=== PATIENT | female | born 1940 | race Caucasian/White ===

== ENCOUNTER 2022-07-22 09:33 | Outpatient (OUT) | payer MEDICARE, MEDICAID, SELFPAY ==
--- NOTE | 2022-07-22 10:03 | CT_ITS ---
The [address] [address] Patient Name: RAUL MCPHERSON MRN: [id number] date: 1940 Sex: F Assigned Patient Location: LAB Current Patient Location: MRI Accession/Order Number: [id number] Exam Date: 07/22/2022 10:15 Report Date: 07/22/2022 21:40 At the request of: JADON VALENTIN Procedure: CT angio head CT angio head, CT angio neck HISTORY: Syncope R55 TECHNIQUE: CTA head and neck. Post-processed images {Maximum intensity Projection (MIP), Volume-rendered (VR), or Surface shaded display images (SSD)} were created, reviewed and archived. All CT scans at this facility use dose modulation, iterative reconstruction, and/or weight based dosing when appropriate to reduce radiation dose to as low as reasonably achievable. Contrast: IV administration of 97 cc Omnipaque 350 COMPARISON: None. RESULT: NECK: Soft tissues: 2.0 cm left lower lobe low-attenuation nodule with scattered calcifications. Extensive postoperative changes involving the second paranasal sinuses including bilateral maxillary antrostomies bilateral uncinectomies, sinusotomies and ethmoidectomies. Diffuse mucoperiosteal reaction. Mild to moderate paranasal sinus mucosal thickening, most prominent within the right maxillary sinus. Spine: Alignment is normal. Mild degenerative changes are present. Lungs: The imaged lungs are clear. CT ARTERIOGRAM: EXTRACRANIAL CIRCULATION: Aortic arch and branch vessels: Conventional 3-vessel arch branch anatomy. No significant stenosis in the proximal brachiocephalic vessels. Carotid Stenosis: Right Common: No significant stenosis. Right Internal Carotid Plaque: Minimal plaque formation. Right Internal Carotid Stenosis (% by NASCET Criteria): 0% Left Common: No significant stenosis. Left Internal Carotid Plaque: Minimal plaque formation. Left Internal Carotid Stenosis (% by NASCET Criteria): 0% Cervical Vertebral Arteries: Patency: Bilateral Dominance: Codominant INTRACRANIAL CIRCULATION: Anterior circulation: Mild atherosclerotic calcification of the carotid siphons without hemodynamically significant stenosis. Otherwise, the distal ICAs, ACAs and MCAs are normal in caliber. A1 segments are codominant. Posterior circulation: Distal vertebral arteries, basilar trunk and paper coater are normal in caliber. Proximal SCAs, AICAs and PICAs are patent. No vessel cut off, filling defect, significant focal narrowing or evidence of aneurysm. Opacified dural venous sinuses and major deep and superficial draining veins are patent. IMPRESSION: Scattered atherosclerotic vascular, without vessel occlusion or high-grade stenosis in the head or neck. Electronically authenticated by: RAQUEL POLK Date: 07/22/2022 21:40
--- NOTE | 2022-07-22 10:03 | CT_ITS ---
The [address] [address] Patient Name: RAUL MCPHERSON MRN: [id number] date: 1940 Sex: F Assigned Patient Location: LAB Current Patient Location: MRI Accession/Order Number: [id number] Exam Date: 07/22/2022 10:15 Report Date: 07/22/2022 21:40 At the request of: JADON VALENTIN Procedure: CT angio neck CT angio head, CT angio neck HISTORY: Syncope R55 TECHNIQUE: CTA head and neck. Post-processed images {Maximum intensity Projection (MIP), Volume-rendered (VR), or Surface shaded display images (SSD)} were created, reviewed and archived. All CT scans at this facility use dose modulation, iterative reconstruction, and/or weight based dosing when appropriate to reduce radiation dose to as low as reasonably achievable. Contrast: IV administration of 97 cc Omnipaque 350 COMPARISON: None. RESULT: NECK: Soft tissues: 2.0 cm left lower lobe low-attenuation nodule with scattered calcifications. Extensive postoperative changes involving the second paranasal sinuses including bilateral maxillary antrostomies bilateral uncinectomies, sinusotomies and ethmoidectomies. Diffuse mucoperiosteal reaction. Mild to moderate paranasal sinus mucosal thickening, most prominent within the right maxillary sinus. Spine: Alignment is normal. Mild degenerative changes are present. Lungs: The imaged lungs are clear. CT ARTERIOGRAM: EXTRACRANIAL CIRCULATION: Aortic arch and branch vessels: Conventional 3-vessel arch branch anatomy. No significant stenosis in the proximal brachiocephalic vessels. Carotid Stenosis: Right Common: No significant stenosis. Right Internal Carotid Plaque: Minimal plaque formation. Right Internal Carotid Stenosis (% by NASCET Criteria): 0% Left Common: No significant stenosis. Left Internal Carotid Plaque: Minimal plaque formation. Left Internal Carotid Stenosis (% by NASCET Criteria): 0% Cervical Vertebral Arteries: Patency: Bilateral Dominance: Codominant INTRACRANIAL CIRCULATION: Anterior circulation: Mild atherosclerotic calcification of the carotid siphons without hemodynamically significant stenosis. Otherwise, the distal ICAs, ACAs and MCAs are normal in caliber. A1 segments are codominant. Posterior circulation: Distal vertebral arteries, basilar trunk and intercell connector placer are normal in caliber. Proximal SCAs, AICAs and PICAs are patent. No vessel cut off, filling defect, significant focal narrowing or evidence of aneurysm. Opacified dural venous sinuses and major deep and superficial draining veins are patent. IMPRESSION: Scattered atherosclerotic vascular, without vessel occlusion or high-grade stenosis in the head or neck. Electronically authenticated by: RAQUEL POLK Date: 07/22/2022 21:40
== END 2022-07-22 09:34 ==
LOC: LAB 09:38
PROVIDERS: PCP Internal Medicine; Visit Provider Nurse Practitioner Adult Health
DX: R55 Syncope and collapse (principal)
CPT/HCPCS: 36415; 70496; 70498; 82565; 84520; Q9967

== ENCOUNTER 2022-07-25 11:00 | Outpatient (OUT) | payer MEDICARE, MEDICAID, SELFPAY ==
[2022-07-22 10:01] LABS: Estimated GFR (African America >60 (>=60); Estimated GFR (Non-African Ame 51 (>=60)
--- NOTE | 2022-07-25 11:05 | MR_ITS ---
The [address] [address] Patient Name: RAUL MCPHERSON MRN: [id number] date: 1940 Sex: F Assigned Patient Location: MRI Current Patient Location: MRI Accession/Order Number: [id number] Exam Date: 07/25/2022 11:05 Report Date: 07/26/2022 07:08 At the request of: JADON VALENTIN Procedure: MR head/brain wo con EXAMINATION: MR head/brain wo con HISTORY: Mild cognitive impairment G31.84, Syncope R55 ; multiple syncopal episodes in COMPARISON: No relevant comparison available. TECHNIQUE: A variety of imaging planes and parameters were utilized for visualization of suspected pathology. Images were performed without contrast. FINDINGS: CEREBRUM: Numerous T2 hyperintensities within the periventricular and subcortical deep white matter and brainstem, nonspecific but favoring chronic small vessel ischemic changes. No edema, hemorrhage, mass, acute infarction, or inappropriate atrophy. CEREBELLUM: No edema, hemorrhage, mass, acute infarction, or inappropriate atrophy. BRAINSTEM: No edema, hemorrhage, mass, acute infarction, or inappropriate atrophy. CSF SPACES: Ventricles, cisterns, and sulci are appropriate for age. No hydrocephalus, subarachnoid hemorrhage, or mass. SKULL: No mass or other significant visible lesion. SINUSES: Bilateral maxillary antrectomies. Moderate mucosal thickening within right maxillary sinus. Mild thickening within the left maxillary, sphenoid, and remnant ethmoid air cells. No developed frontal sinuses. Retained secretions within left sphenoid sinus. ORBITS: Limited views are unremarkable. OTHER: Negative. IMPRESSION: 1. Age consistent atrophy and chronic small vessel ischemic changes. 2. No mass or suspicious findings. 3. Chronic sinusitis. Electronically authenticated by: IDANIA ESTRADA Date: 07/26/2022 07:08
== END 2022-07-25 11:01 ==
LOC: MRI 11:00
PROVIDERS: PCP Internal Medicine; Visit Provider Nurse Practitioner Adult Health
DX: R55 Syncope and collapse (principal); G31.84 Mild cognitive impairment of uncertain or unknown etiology; J32.9 Chronic sinusitis, unspecified; G31.9 Degenerative disease of nervous system, unspecified
CPT/HCPCS: 36415; 70551; 82565; 84520

== ENCOUNTER 2022-08-05 09:35 | Outpatient (OUT) | payer MEDICARE, SELFPAY ==
--- NOTE | 2022-08-05 11:40 | CT_ITS ---
The [address] [address] Patient Name: RAUL MCPHERSON MRN: [id number] date: 1940 Sex: F Assigned Patient Location: CT Current Patient Location: CT Accession/Order Number: [id number] Exam Date: 08/05/2022 11:20 Report Date: 08/05/2022 12:12 At the request of: NON-STAFF PHYSICIAN Procedure: CT abdomen pelvis w con EXAM: CT abdomen pelvis w con HISTORY: Abdominal Pain R10.9, Diarrhea R19.7 COMPARISON: None. TECHNIQUE: Axial CT images were obtained of the abdomen and pelvis with intravenous contrast. Multiplanar reconstructions were performed. ABDOMEN/PELVIS FINDINGS: Lower Chest: Unremarkable. Liver: A a few tiny hypodense lesions are present in the liver that are too small to characterize, but likely represent small cysts. Biliary/Gallbladder: Unremarkable. Pancreas: Unremarkable. Spleen: Unremarkable. Adrenal Glands: Unremarkable. Kidneys: Unremarkable. Gastrointestinal/Peritoneum: There is a moderate volume of stool in the transverse, descending and sigmoid colon. Extensive colonic diverticulosis is present at the sigmoid colon. The appendix is not discretely visualized. No free air or free fluid. Vascular: Mild scattered atherosclerotic calcifications are present. Lymph Nodes: No enlarged lymph nodes by CT size criteria. Pelvic Organs: Prior hysterectomy. Bladder: Unremarkable. Bones: No acute osseous abnormality. Moderate multilevel degenerative changes are present in the visualized spine. Soft tissues: Unremarkable. IMPRESSION: 1. No acute findings. 2. Moderate stool burden. 3. Extensive colonic diverticulosis. 4. Prior hysterectomy. Electronically authenticated by: BRYANT BRITO Date: 08/05/2022 12:12
== END 2022-08-05 09:36 | disposition home or self-care (01) ==
LOC: CT 09:36
PROVIDERS: PCP Internal Medicine
DX: R10.9 Unspecified abdominal pain (principal); R19.7 Diarrhea, unspecified; K57.30 Diverticulosis of large intestine without perforation or abscess without bleeding; Z90.710 Acquired absence of both cervix and uterus
CPT/HCPCS: 74177; Q9967

== ENCOUNTER 2024-10-15 11:24 | Outpatient (REF) | payer MEDICARE, SELFPAY ==
--- OUTSIDE RECORDS SUMMARY | 2024-10-09 09:00 | XMS_ITS | Encounter Summary ---
Author Organization [facility] Address [address] [place] [address] Care Team Providers Care Fulfillment Representative Name Role Phone Alberto Lugo Primary Care Provider [phone] Source Comments In the event this information is protected by the Federal Confidentiality of Alcohol and Drug AbusePatient Records regulations: The Federal rules restrict any use of the information to criminally investigate or prosecute any alcohol or drug abuse patient.[facility] Reason for Visit * Reason Comments New Patient Right sided head vikram n post fall from one year ago , hit head on concrete Occipital Pain * Consult, Test, Treat (Routine) - Closed Specialty Diagnoses / Procedures Referred By Pratibha bills Referred To Contact Neurology Diagnoses Occipital neuralgia of right side Procedures OFFICE/OUTPATIENT [facility] 60 MINUTES Cesar Vitale, DO [address] [place] [address] Phone: tel: Outpatient Referral [address] [place] [address] Referral ID Status Reason Start Date Expiration Date V isits Requested Visits Authorized [id number] Closed PCP Requested Referral 09/23/2024 2025 1 1 Encounter Details Date Type Department Care Team (Late st Contact Info) Description 10/09/2024 9:00 AM EDT Office Visit Neurology [address] [place] [address] Rochelle Jimé[place] [id number] [place] [address] Occipital neuralgia of right side Social History Tobacco Use Types Packs/Day Years Used Date Smoking Tobacco: Never Smokeless Tobacco: Never Tobacco Cessation:Counseling Given: Not Answered Alcohol Use Standard Drinks/Week Comments Never 0 (1 standard drink = 0.6 oz pur e alcohol) PHQ-2 Answer Date Recorded PHQ-2 score 2 09/17/2024 Area Deprivation Index Answer Date Ric rded National Score (1-100), lower number is lower ri sk 92 07/17/2024 State Score (1-10), lower number is lower risk 9 07/17/2024 Data from: https://www.neighborhoodatlas.medicine.[facility].edu/. Last address used for calculation [address] [place] [address] [employer] 07/17/2024 Comments Unknown Sex and Gender Information Value Date Recorded Sex Assigned at Not on file Legal Sex Female 2:46 PM EDT Gender Identity Not on file Sexual Orientation Not on file documented as of this encounter Last Filed Vital Signs Vital Sign Reading Time Taken Comments Blood Pressure 167/91 10/09/2024 8:52 AM EDT Pulse 65 10/09/2024 8:52 AM EDT Temperature - - Respiratory Rate - - Oxygen Saturation - - Inhaled Oxygen Concentration - - Weight 95.8 kg (211 lb 3.2 oz) 10/09/2024 8:52 A M EDT Height 167.6 cm (5' 6 ) 10/09/2024 8:52 AM EDT Body Mass Index 34.09 10/09/2024 8:52 AM EDT documented in this encounter Progress Notes * Rochelle Jiménez MD - 10/09/2024 9:24 AM EDT CONSULT-HEADACHE MEDICINE SERVICE DATE: 10/09/2024 Location: [facility] Participants: Patient, daughter and Provider Requesting Provider: Dr. Vitale Recommendations of care will be communicated by shared medical record. Subjective HPI: Audrey Watts is a 84 year old year old female who is here referred by Dr. Vitale for right occipital nerve block. She had 1 with a known [facility] provider about 6 months ago without benefit. Note from 08/06/2024 Dr. Vitale, reviewed. Past medical history: No DM A fibrillation Inermittent bronchitis Chronic maxillary sinusitis SKYE Outpatient Medications as of 10/09/[address] (CYMBALTA) 20 mg capsule Take 20 mg by mouth once daily. lisinopril (ZESTRIL) 20 mg tablet Take 20 mg by mouth every morning. gabapentin (NEURONTIN) 300 mg capsule BID x 2 weeks, then 1 TID baclofen 5 mg tablet Take 0.5-1 tablets by mouth two times a day as needed (tension/tightness). apixaban (ELIQUIS) 5 mg (74 tabs) Take 5 mg by mouth two times a day. amiodarone (PACERONE) 200 mg tablet Take 200 mg by mouth once daily. pravastatin (PRAVACHOL) 20 mg tablet Take 20 mg by mouth once daily. carvedilol (COREG) 3.125 mg tablet Take 3.125 mg by mouth two times a day. fluticasone (FLONASE) 50 mcg/actuation nasal spray Use 1 spray in each nostril once daily. tiotropium bromide (SPIRIVA RESPIMAT) 2.5 mcg/actuation inhaler Inhale 2 puffs as instructed two times a day. No current facility-administered medications on file as of 10/09/2024. Current medications review: Duloxetine for SKYE Neurontin for occipital neuralgia ALLERGIES Allergen Reactions Sulfa (Sulfonamide * Swelling PHYSICAL EXAM: Vitals: BP 167/91 Pulse 65 Ht 167.6 cm (5' 6 ) Wt 95.8 kg (211 lb 3.2 oz) BMI 34.09 kg/m?? Neck is supple. Skin over the neck is intact.Palpation of right sub-occipital area triggers pain. ASSESSMENT: -Right occipital neuralgia RECOMMENDATIONS: 1. Right occipital nerve block today. See attached procedure note. 2. Follow up as needed with me. Follow-up with Dr. Vitale. Rochelle Jiménez MD [facility] [place] documented in this encounter Procedure Notes * Rochelle Jiménez MD - 10/09/2024 9:43 AM EDT Occipital Nerve Block procedure note: Responsible practitioner performing the procedure(s)/treatment(s): Rochelle Jiménez Practitioner obtaining the consent: Rochelle Jiménez Procedure(s)/treatment(s): Occipital nerve block Consent Source: Patient Consent DEPARTMENT of NEUROLOGY UNIVERSAL PROTOCOL / SAFETY CHECKLIST Procedure to be Performed: Occipital nerve block Sign In: A Moment of CARE was completed. Personnel directly involved with the procedure wore the appropriate PPE (Personal Protective Equipment). Patient/Surrogate Stated/Verified: PATIENT VERIFIED(optional for EMERGENT procedures): Patient name, Date of , Relevant allergies and The intended procedure Time Out Communication: Intended patient and procedure match the source documents. Consent documented and matches the intended procedure. No relevant labs, photos, and/or imaging studies were applicable for review. No correct side/site applicable for marking and visibility. Medications required for procedure verified. No fire risk assessment and interventions applicable. No implant(s) inserted. Sign Out: SIGN OUT (optional for EMERGENT procedures): No specimen collected. No instruments, equipment or retained foreign bodies applicable. Post-procedure follow-up management communicated and Plan of Care Visit completed when applicable. Right Occipital Nerve Block: Dx: Occipital neuralgia Consent: In [facility] Informational guide about Occipital nerve block given - no allergies to steroid or anesthetic - no surgeries or hx of trauma in occipital area - no recent steroid injections for other indications Procedure: The patient was placed in a seated position. The site of pain and procedure were confirmed with the patient prior to starting the procedure. The patient's nuchal ridge of the occipital bone was identified and prepped with well with chlorhexidine x 3. A 31 Gauge 1/2 inch needle was advanced through the skin and subcutaneous tissues lateral to the occipital protuberance in the area of the right Greater Occipital Nerve.. Aspiration for blood and CSF was negative. FOR LATISHA: The needle wasagain repositioned 2 cm laterally. This area was injected with 1 cc of fluid after ensuring there was no obstruction or back flow of blood. A total of 6 cc of bupivacaine 0.25% and 6 mg of Betamethasone (Celestone)was injected. Needle was then removed and bleeding was nil. Rochelle Jiménez MD [facility] [place] documented in this encounter Plan of Treatment Not on file documented as of this encounter Visit Diagnoses Diagnosis Occipital neuralgia of right side documented in this encounter Administered Medications Inactive Administered Medications - up to 3 most recent administrations Medication Order MAR Action Action Date Dose Rate Site betamethasone acetate-betamethasone sodium phosphate 6 mg injection (CELESTONE) 6 mg, OTHER, ONCE, 1 dose, On Mon10/09/24 at 1030, Protect From Light. Given 10/09/2024 10:17 AM EDT 6 mg O[facility] r bupivacaine (PF) 0.25 % (2.5 mg/mL) 6 mg injection (SENSORCAINE MPF) 6 mg, peripheral nerve block, ONCE, 1 dose, On Mon10/09/24 at 1030 Given 10/09/2024 10:15 AM EDT 6 mg Othe r documented in this encounter Care Teams Fulfillment Representative Relationship Specialty Start Date End Date Alberto Lugo [facility] [address] [place] [address] PCP - General 09/29/17 documented as of this encounter
--- OUTSIDE RECORDS SUMMARY | 2024-10-15 10:30 | XMS_ITS | Encounter Summary ---
Author Organization [facility] Address [address] [place] [address] Care Team Providers Care Grader Operator Name Role Phone Sandy Toribio Unavailable Alberto Leonardo MD Primary Care Provider Reason for Visit * Reason Comments Sinusitis Need culture done no se Encounter Details Date Type Department Care Team (Late st Contact Info) Description 10/15/2024 10:30 AM EDT Office Visit [facility] [address] [facility] [address] [place] [id number] Jannette Arciniega MD [address] [facility] [address] [place], [place] [id number] Chronic maxillary sinusitis; Acute sinusitis, recurrence not specified, unspecified location Social History Tobacco Use Types Packs/Day Years Used Date Smoking Tobacco: Never Smokeless Tobacco: Never Alcohol Use Standard Drinks/Week Comments Never 0 (1 standard drink = 0.6 oz pure alcohol) caffeine intake: 2-3 cups per day of coffee Comments Unknown Sex and Gender Information Value Date Recorded Sex Assigned at Not on file Legal Sex Female 7:13 PM EDT Gender Identity Not on file Sexual Orientation Not on file documented as of this encounter Last Filed Vital Signs Vital Sign Reading Time Taken Comments Blood Pressure 132/80 10/15/2024 10:30 AM EDT Pulse 69 10/15/2024 10:30 AM EDT Temperature - - Respiratory Rate - - Oxygen Saturation - - Inhaled Oxygen Concentration - - Weight 95.3 kg (210 lb) 10/15/2024 10:30 AM EDT Height 167.6 cm (5' 6 ) 10/15/2024 10:30 AM EDT Body Mass Index 33.89 10/15/2024 10:30 AM EDT documented in this encounter Plan of Treatment Upcoming Encounters Date Type Department Care Team (Late st Contact Info) Description 11/12/2024 1:00 PM EDT Office Visit [facility] [address] [facility] [address] [place] [address] Jannette Arciniega MD [address] [facility] [address] [place] [address] Scheduled Orders Name Type Priority Associated Diagnoses Orde r Schedule Aerobic culture Microbiology Routine Chronic maxillary sinusitis Acute sinusitis, recurrence not specified, unspecified location Expected: 10/15/2024 (Approximate), Expires: 10/15/2025 documented as of this encounter Visit Diagnoses Diagnosis Chronic maxillary sinusitis Acute sinusitis, recurrence not specified, unspecified location documented in this encounter Care Teams Grader Operator Relationship Specialty Start Date End Date Alberto Leonardo MD [address] [place] [address], [address] [place] [address] PCP - General Family Medicine 04/19/24 Sandy Toribio PA Physician Hand Driller Neurology 03/05/24 documented as of this encounter
--- OUTSIDE RECORDS SUMMARY | 2024-10-15 11:27 | XMS_ITS | Encounter Summary ---
Author Organization [facility] Address [address] [place] [address] Phone Care Team Providers Care Paleontological Helper Name Role Phone Alberto Leonardo MD Primary Care Provider + Encounter Details Date Type Department Care Team (Late st Contact Info) Description 09/17/2019 Orders Only [facility] [address] [place] [address] Conversion, Onbase Social History Tobacco Use Types Packs/Day Years Used Date Smoking Tobacco: Never Assessed Comments Unknown Sex and Gender Information Value Date Recorded Sex Assigned at Not on file Legal Sex Female 7:40 PM EST Gender Identity Not on file Sexual Orientation Not on file documented as of this encounter Plan of Treatment Scheduled Orders Name Type Priority Associated Diagnoses Orde r Schedule OUTSIDE LAB SCAN Lab Ordered: 09/17/2019 documented as of this encounter Visit Diagnoses Not on filedocumented in this encounter Care Teams Paleontological Helper Relationship Specialty Start Date End Date Alberto Leonardo MD PCP - General 06/28/18 documented as of this encounter
--- OUTSIDE RECORDS SUMMARY | 2024-10-15 11:27 | XMS_ITS | Encounter Summary ---
Author Organization [employer] Sys [employer] Address [facility] [place]-[id number] [address] [place] [address] Care Team Providers Care Beaver Trapper Name Role Phone Alberto Leonardo MD Primary Care Provider [phone] Encounter Details Date Type Department Care Team (Late st Contact Info) Description 08/11/2020 Telephone [facility]/Pediatrics [address] [place] [address] 1 [place] [address] Alberto Leonardo MD [address] [place] [address], [address] [place] [address] Social History Tobacco Use Types Packs/Day Years Used Date Smoking Tobacco: Never Smokeless Tobacco: Never Alcohol Use Standard Drinks/Week Comments Never 0 (1 standard drink = 0.6 oz pur e alcohol) AUDIT-C Answer Date Recorded Q1: How often do you have a drink containing alc ohol? Never 04/13/2020 Q2: How many drinks containi ng alcohol do you have on a typical day when you are drinking? Not asked 04/13/2020 Q3: How often do you have six or more drinks on one occasion? Never 04/13/2020 PHQ-2 Answer Date Recorded Total Score 0 07/08/2020 Childcare Answer Date Recorded Childcare Unknown 07/18/2018 Employment Answer Date Recorded Employment Unknown 07/18/2018 Purpose - Life Answer Date Recorded Purpose and direction in life Unknown Comments Unknown Sex and Gender Information Value Date Recorded Sex Assigned at Female 09/19/2022 9:02 AM EDT Legal Sex Female 11:28 AM EDT Gender Identity Female 09/19/2022 9:02 AM EDT Sexual Orientation Straight 09/19/2022 9: 02 AM EDT COVID-19 Exposure Response Date Recorded In the last month, have you been in contact with someone who was confirmed or suspected to have Coronavirus / COVID-19? No / Unsure 08/11/2020 9:03 AM EDT documented as of this encounter Miscellaneous Notes * Telephone Encounter - Elizabethmaine Ortakell - 08/11/2020 9:05 AM EDT Transition of Care (*required) *Additional Questions/Concerns Requiring PCP Follow-Up: Wanting referred to Dr Anne (B[place]). This documentation is being used for Transition of Care purposes: Yes Goal: Patient will demonstrate a safe transition Diagnosis on Discharge: Viral gastroenteritis, Ischemic colitis *Name of Discharging Facility: [facility] Date of Facility Discharge: 08/07/20 Date of Interactive Contact and Name of Brake Lining Curer: Audrey 08/11/20 *Medication Review Completed: Yes Medication Reconciliation Questions/Concerns: Not at this time *Follow Up Appointments with Providers: Primary: Alberto Leonardo MD Specialty: Specialty: Specialty: Review of Pending Lab/Diagnostic Tests and Plan for Completion: yes Assessment and Support of Treatment Regimen Adherence and Medication Management: yes Education Provided by ACN to Support Self-Management, Independent Living and ADLs: yes Communication with Home Health Agencies and Other Services Utilized/Needed by the Patient: no documented in this encounter Plan of Treatment Upcoming Encounters Date Type Department Care Team (Late st Contact Info) Description 10/29/2024 11:30 AM EDT Office Visit [facility] [address] [place] [address] Rose Marie Goode MD [address] [place] [address] documented as of this encounter Visit Diagnoses Not on filedocumented in this encounter Additional Health Concerns Infection Onset Date Last Indicated Resolved Time COVID-19 Rule-Out 05/11/2021 05/11/202105/1105/11/2021 4:10 PM EDT COVID-19 Positive 05/11/2021 05/11/2021 06/01/2021 11:12 PM EDT COVID-19 Rule-Out 03/11/2023 03/11/2023 03/11/2023 3:46 PM EST COVID-19 Rule-Out 03/11/2023 03/11/2023 03/11/2023 5:20 PM EST Assessment Noted Time PHQ-9 Depression Total Score: 0 07/09/19 21 9:16 AM EDT documented as of this encounter Care Teams Beaver Trapper Relationship Specialty Start Date End Date Alberto Leonardo MD [address] [place] [address], [address] [place] [address] PCP - General Pediatrics 04/13/23 documented as of this encounter
--- OUTSIDE RECORDS SUMMARY | 2024-10-15 11:27 | XMS_ITS | Encounter Summary ---
Author Organization [employer] Sys [employer] Address [facility]-[id number] [address] [place] [address] Care Team Providers Care Manager Review Name Role Phone Alberto Leonardo MD Primary Care Provider [phone] Encounter Details Date Type Department Care Team (Late st Contact Info) Description 09/03/2021 Telephone [facility]/Pediatrics [address] [facility] 1 [place] [address] Tia Ryan RMA Social History Tobacco Use Types Packs/Day Years Used Date Smoking Tobacco: Never Smokeless Tobacco: Never Alcohol Use Standard Drinks/Week Comments Never 0 (1 standard drink = 0.6 oz pur e alcohol) Social Connection and Isolat ion Panel [NHANES] Answer Date Recorded In a typical week, how many times do you talk on the phone with family, friends, or neighbors? Three times a week 09/04/2021 How often do you get togethe r with friends or relatives? More than three times a week 09/04/2021 How often do you attend chur ch or bahai services? More than 4 times per year 09/04/2021 Do you belong to any clubs o r organizations such as jew groups, unions, fraternal or athletic groups, or school groups? Yes 09/04/2021 How often do you attend meet ings of the clubs or organizations you belong to? More than 4 times per year 09/04/2021 Are you , , di vorced, , never , or living with a partner? 09/04/2021 AUDIT-C Answer Date Recorded Q1: How often do you have a drink containing alcohol? Never 09/04/2021 Q2: How many drinks containi ng alcohol do you have on a typical day when you are drinking? Patient does not drink Q3: How often do you have si x or more drinks on one occasion? Never 09/04/2021 Overall Financial Resource Strain (CARDIA) Answe r Date Recorded How hard is it for you to pa y for the very basics like food, housing, medical care, and heating? Not hard at all 09/04/2021 PHQ-2 Answer Date Recorded Total Score 0 03/24/2021 [facility] of Occupat ional Health - Occupational Stress Questionnaire Answer Date Recorded Do you feel stress - tense, restless, nervous, or anxious, or unable to sleep at night because your mind is troubled all the time - these days? Not at all 09/04/2021 Exercise Vital Sign Answer Date Recorde d On average, how many days pe r week do you engage in moderate to strenuous exercise (like a brisk walk)? 2 days 09/04/2021 On average, how many minutes do you engage in exercise at this level? 20 min 09/04/2021 PRAPARE - Transportation Answer Date Re corded In the past 12 months, has l ack of transportation kept you from medical appointments or from getting medications? No 08/08 In the past 12 months, has l ack of transportation kept you from meetings, work, or from getting things needed for daily living? No 09/04/2021 Childcare Answer Date Recorded Do problems getting child ca re make it difficult for you to work or study? No 09/04/2021 Employment Answer Date Recorded Do you need help finding a [employer] career center and/or a training program? No 09/04/2021 Purpose - Life Answer Date Recorded I have a purpose and direction in my life. Stron gly Agree 09/04/2021 Comments No Sex and Gender Information Value Date Recorded [...] have Coronavirus / COVID-19? No / Unsure 09/04/2021 6:23 PM EDT documented as of this encounter Functional Status * Question Answer Date of Assessment Author Functional Status Moderate assistance 09/04/2021 7:16 PM EDT Elis Bourgeois RN * Audit-C Score Answer Date of Assessment Author 0 09/04/2021 7:31 PM EDT Vickie Bourgeois RN * Question Answer Date of Assessment Author Q1: How often do you have a drink containing alcohol? Never 09/04/2021 7:31 PM EDT Elis Bourgeois R N Q2: How many drinks containing alcohol do you have on a typical day when you are drinking? Patient does not drink 09/04/2021 7:31 PM EDT Elis Bourgeois RN Q3: How often do you have six or more drinks on one occasion? Never 09/04/2021 7:31 PM EDT Elis Bourgeois R N documented as of this encounter Miscellaneous Notes * Telephone Encounter - WILDA Kc - 09/03/2021 11:12 AM EDT Patient called stating her back pain has flared up. She said she's had back issues for years. She said the pain is in her lower back and radiates into her hip. Extra strength tylenol is not helping at all and she is unable to move around the house much. She wants to know if there is anyway you could send something into the pharmacy. Please advise. * Telephone Encounter - WILDA Kc - 09/03/2021 11:12 AM EDT FYI Patient called stating she is in too much pain and unable to get out of her chair. She is calling the squad and going to the ER. documented in this encounter Plan of Treatment Upcoming Encounters Date Type Department Care Team (Late st Contact Info) Description 10/29/2024 11:30 AM EDT Office Visit [facility] [address] [place] [address] Rose Marie Goode MD [address] [place] [address] documented as of this encounter Goals Goal Patient Goal Type Associated Problems Recent Progress Patient-Stated? Author SNF General Yes Flora Ornelas LSW Note: Evaluation of progress towards goal: DC to SNF or home with HHC (pending clinical course). Pt symptoms improved, goal is home; declining HHC. documented as of this encounter Visit Diagnoses Not on filedocumented in this encounter Additional Health Concerns Infection Onset Date Last Indicated Resolved Time COVID-19 Rule-Out 03/11/2023 03/11/2023 03/11/2023 3:46 PM EST COVID-19 Rule-Out 03/11/2023 03/11/2023 03/11/2023 5:20 PM EST Assessment Noted Time PHQ-9 Depression Total Score: 0 03/24/19 22 10:03 AM EST documented as of this encounter Care Teams Manager Review Relationship Specialty Start Date End Date Alberto Leonardo MD [address] [place] [address], [address] [place] [address] PCP - General Pediatrics 04/13/23 documented as of this encounter
--- OUTSIDE RECORDS SUMMARY | 2024-10-15 11:27 | XMS_ITS | Encounter Summary ---
Author Organization [employer] Sys [employer] Address [id number] [address] [place] [address] Care Team Providers Care Emr Specialist Name Role Phone Alberto Leonardo MD Primary Care Provider [phone] Reason for Visit * Reason Comments Med Refill Encounter Details Date Type Department Care Team (Late st Contact Info) Description 03/14/2023 Refill [facility]/P[facility] [address] [place] [address] 1 [place] [address] Alberto Leonardo MD [address] [place] [address], 1 [place] [address] Social History Tobacco Use Types Packs/Day Years Used Date Smoking Tobacco: Never Smokeless Tobacco: Never Alcohol Use Standard Drinks/Week Comments Not Currently 0 (1 standard drink = 0.6 oz [...] often do you attend chur ch or worship services? More than 4 times per year 09/04/2021 Do you belong to any clubs o r organizations such as jainism groups, unions, fraternal or athletic groups, or [...] 09/04/2021 PHQ-2 Answer Date Recorded Total Score 4 01/18/2023 [facility] of Occupat ional Health - Occupational Stress [...] Recorded Do you need help finding a [facility] and/or a training program? No 09/04/2021 Hunger Screening Answer Date Recorded Within the past 12 months we worried whether our food would run out before we got money to buy more. Never True 03/11/2023 Within the past 12 months th e food we bought just didn't last and we didn't have money to get more. Never True 03/11/2023 Purpose - Life Answer Date Recorded I have a purpose and direction in my life. Stron gly Agree 09/04/2021 Comments No Sex and Gender Information Value Date Recorded Sex Assigned at Female 09/19/2022 9:02 AM EDT Legal Sex Female 11:28 AM EDT Gender Identity Female 09/19/2022 9:02 AM EDT Sexual Orientation Straight 09/19/2022 9: 02 AM EDT documented as of this encounter Miscellaneous Notes * Telephone Encounter - Jami Griffin CMA - 03/14/2023 5:45 AM EST Patient no longer on this medication documented in this encounter Plan of Treatment Upcoming Encounters Date Type Department Care Team (Late st Contact Info) Description 10/29/2024 11:30 AM EDT Office Visit [facility] [address] [place] [address] Rose Marie Goode MD [address] [place] [address] documented as of this encounter Goals Goal Patient Goal Type Associated Problems Recent Progress Patient-Stated? Author SNF General Yes Flora Ornelas LSW Note: Evaluation of progress towards goal: DC to SNF or home with HHC (pending clinical course). Pt symptoms improved, goal is home; declining HHC. documented as of this encounter Visit Diagnoses Not on filedocumented in this encounter Additional Health Concerns Assessment Noted Time PHQ-9 Depression Total Score: 4 01/19/20 23 9:00 AM EST documented as of this encounter Care Teams Emr Specialist Relationship Specialty Start Date End Date Alberto Leonardo MD [address] [place] [address], [address] [place], [place] [id number] PCP - General Pediatrics 04/13/23 documented as of this encounter
--- OUTSIDE RECORDS SUMMARY | 2024-10-15 11:27 | XMS_ITS | Encounter Summary ---
Author Organization [employer] Address [facility]-[id number] [address] [place] [address] Care Team Providers Care Multifocal Lens Inspector Name Role Phone Alberto Leonardo MD Primary Care Provider [phone] Reason for Visit * Reason Comments Med Refill Encounter Details Date Type Department Care Team (Late st Contact Info) Description 01/26/2022 Refill [facility] [address] [place] [address] 1 [place] [phone] Alberto Leonardo MD [address] [place] [address], [address] [place] [address] Chronic sinusitis, unspecified location Social History Tobacco Use Types [...] often do you attend chur ch or christian services? More than 4 times per year 09/04/2021 Do you belong to any clubs o r organizations such as temple groups, unions, fraternal or athletic groups, or [...] 09/04/2021 PHQ-2 Answer Date Recorded Total Score 1 12/14/2021 [facility] of Occupat ional Health - Occupational Stress [...] Recorded Do you need help finding a [facility] career [facility] and/or a training program? No [...] Telephone Encounter - Jami Griffin CMA - 01/26/2022 7:39 AM EST Patient should call us if she needs a refill documented in this encounter Plan of Treatment Upcoming Encounters Date Type Department Care Team (Late st Contact Info) Description 10/29/2024 11:30 AM EDT Office Visit [facility] [address] [place] [address] Rose Marie Goode MD [address] [place], [place] [id number] documented as of this encounter Goals Goal Patient Goal Type Associated Problems Recent Progress Patient-Stated? Author SNF General Yes Flora Ornelas LSW Note: Evaluation of progress towards goal: DC to SNF or home with HHC (pending clinical course). Pt symptoms improved, goal is home; declining HHC. documented as of this encounter Visit Diagnoses Diagnosis Chronic sinusitis, unspecified location documented in this encounter Additional Health Concerns Infection Onset Date Last Indicated Resolved Time COVID-19 Rule-Out 03/11/2023 03/11/2023 03/11/2023 3:46 PM EST COVID-19 Rule-Out 03/11/2023 03/11/2023 03/11/2023 5:20 PM EST Assessment Noted Time PHQ-9 Depression Total Score: 1 12/15/19 22 1:00 PM EST documented as of this encounter Care Teams Multifocal Lens Inspector Relationship Specialty Start Date End Date Alberto Leonardo MD [address] [place] [address], [address] [place], [place] [id number] PCP - General Pediatrics 04/13/23 documented as of this encounter
--- OUTSIDE RECORDS SUMMARY | 2024-10-15 11:27 | XMS_ITS | Encounter Summary ---
Author Organization [employer] Address [id number] [address] [place] [address] Care Team Providers Care Mobile Sales Technician Name Role Phone Alberto Leonardo MD Primary Care Provider [phone] Reason for Visit * Reason Comments Med Refill Encounter Details Date Type Department Care Team (Late st Contact Info) Description 11/06/2023 Refill [facility]/P[facility] [address] [place] [address] 1 [place] [address] Alberto Leonardo MD [address] [place] [address], 1 [place] [address] Social History Tobacco Use Types [...] often do you attend chur ch or orthodox services? More than 4 times per year 09/04/2021 Do you belong to any clubs o r organizations such as synagogue groups, unions, fraternal or athletic groups, or [...] Answer Date Recorded Total Score 4 01/18/2023 [facility] of Occupat ional Health - Occupational [...] Recorded Do you need help finding a [facility] and/or a training program? No 09/04/2021 Hunger Screening Answer Date Recorded Within the past 12 months we worried whether our food would run out before we got money to buy more. Never True 10/07/2023 Within the past 12 months th e food we bought just didn't last and we didn't have money to get more. Never True 10/07/2023 Purpose - Life Answer Date Recorded I [...] Telephone Encounter - Jami Griffin CMA - 11/06/2023 4:17 PM EDT duplicate documented in this encounter Plan of Treatment Upcoming Encounters Date Type Department Care Team (Late st Contact Info) Description 10/29/2024 11:30 AM EDT Office Visit [facility] [address] [place] [phone] Rose Marie Goode MD [address] [place] [address] documented as of this encounter Goals Goal [...] documented as of this encounter Care Teams Mobile Sales Technician Relationship Specialty Start Date End Date Alberto Leonardo MD [address] [place] [address], [address] [place], [place] [id number] PCP - General Pediatrics 04/13/23 documented as of this encounter
--- OUTSIDE RECORDS SUMMARY | 2024-10-15 11:27 | XMS_ITS | Encounter Summary ---
Author Organization [employer] s tem Address [facility] [place]-[id number] [facility] [place] [address] Care Team Providers Care Narrow Gauge Operator Name Role Phone Alberto Leonardo MD Primary Care Provider Encounter Details Date Type Department Care Team (Late st Contact Info) Description 09/20/2021 Telephone [facility] [address] [place] [address] 1 [place] [address] Alberto Leonardo MD [address] [place] [address], [address] [place] [address] Social History Tobacco Use Types [...] often do you attend chur ch or mandaeism services? More than 4 times per year 09/04/2021 Do you belong to any clubs o r organizations such as sabianism groups, unions, fraternal or athletic groups, or [...] Answer Date Recorded Total Score 0 03/24/2021 [facility] of Occupat ional Health - Occupational Stress [...] Recorded Do you need help finding a l al career center and/or a training program? [...] have Coronavirus / COVID-19? No / Unsure 09/18/2021 10:20 PM EDT documented as of this encounter Miscellaneous Notes * Telephone Encounter - Maren Kohler - 09/20/2021 10:30 AM EDT Audrey needs a STEPHANIE done, she is being discharged today 09/20 from [facility]. Appointment is scheduled for 09/27. documented in this encounter Plan of Treatment Upcoming Encounters Date Type Department Care Team (Late st Contact Info) Description 10/29/2024 11:30 AM EDT Office Visit [facility] [address] [place] [address] Rose Marie Goode MD [address] [place] [address] documented as of this encounter Goals Goal [...] Time PHQ-9 Depression Total Score: 0 03/24/19 10:03 AM EST documented as of this encounter Care Teams Narrow Gauge Operator Relationship Specialty Start Date End Date Alberto Leonardo MD [address] [place] [address], [address] [place] [address] PCP - General Pediatrics 04/13/23 documented as of this encounter
--- OUTSIDE RECORDS SUMMARY | 2024-10-15 11:27 | XMS_ITS | Encounter Summary ---
Author Organization [facility] Address [address] [place] [address] Phone Care Team Providers Care Tent Assembler Name Role Phone Alberto Leonardo MD Primary Care Provider + Encounter Details Date Type Department Care Team (Late st Contact Info) Description 09/10/2020 Orders Only [facility] [address] [place] [address] Conversion, Onbase Social History Tobacco Use Types [...] Type Priority Associated Diagnoses Orde r Schedule SLEEP STUDY ORDER - ONBASE SCAN Sleep Center Ordered: 021 documented as of this encounter Visit Diagnoses Not on filedocumented in this encounter Care Teams Tent Assembler Relationship Specialty Start Date End Date Alberto Leonardo MD PCP - General 06/28/18 documented as of this encounter
--- OUTSIDE RECORDS SUMMARY | 2024-10-15 11:27 | XMS_ITS | Encounter Summary ---
Author Organization [facility] Sys tem Address [facility]-[id number] [address] [place] [address] Care Team Providers Care Human Service Specialist Name Role Phone Alberto Leonardo MD Primary Care Provider [phone] Encounter Details Date Type Department Care Team (Late st Contact Info) Description 04/01/2022 Orders Only [facility] [address] [place] [address] External, Scanning Provider Social History Tobacco Use Types Packs/Day Years [...] often do you attend chur ch or synagogue services? More than 4 times per year 09/04/2021 Do you belong to any clubs o r organizations such as shinto groups, unions, fraternal or athletic groups, or [...] Answer Date Recorded Total Score 1 12/14/2021 [facility] of Occupat ional Health - Occupational Stress [...] Recorded Do you need help finding a [employer] [facility] career center and/or a training program? No 09/04/2021 Hunger Screening Answer Date Recorded Within the past 12 months we worried whether our food would run out before we got money to buy more. Never True 03/23/2022 Within the past 12 months th e food we bought just didn't last and we didn't have money to get more. Never True 03/23/2022 Purpose - Life Answer Date Recorded I [...] have Coronavirus / COVID-19? No / Unsure 03/22/2022 2:54 PM EST documented as of this encounter Plan of Treatment Upcoming Encounters Date Type Department Care Team (Late st Contact Info) Description 10/29/2024 11:30 AM EDT Office Visit [facility] [address] [place] [address] Rose Marie Goode MD [address] [place] [address] documented as of this encounter Goals Goal Patient Goal Type Associated Problems Recent Progress Patient-Stated? Author SNF General Yes Flora Ornelas LSW Note: Evaluation of progress towards goal: DC to SNF or home with HHC (pending clinical course). Pt symptoms improved, goal is home; declining HHC. documented as of this encounter Procedures Procedure Name Priority Date/Time Associated Diagnosis Comments US ABDOMEN COMPLETE Routine 03/31/2022 documented in this encounter Results * Ultrasound abdomen complete (03/31/2022) Anatomical Region Laterality Modality Body, Abdomen Ultrasound 03/31/2022 us Scanning Provider External IMG US ORDERABLES Fin al Result documented in this encounter Visit Diagnoses Not on filedocumented in this encounter Additional Health Concerns Infection Onset Date Last Indicated Resolved Time COVID-19 Rule-Out 03/11/2023 03/11/2023 03/11/2023 3:46 PM EST COVID-19 Rule-Out 03/11/2023 03/11/2023 03/11/2023 5:20 PM EST Assessment Noted Time PHQ-9 Depression Total Score: 1 12/15/19 22 1:00 PM EST documented as of this encounter Care Teams Human Service Specialist Relationship Specialty Start Date End Date Alberto Leonardo MD [address] [place] [address], [address] [place] [address] PCP - General Pediatrics 04/13/23 documented as of this encounter
--- OUTSIDE RECORDS SUMMARY | 2024-10-15 11:27 | XMS_ITS | Encounter Summary ---
Author Organization [employer] Sys [employer] Address [facility] [place]-[id number] [address] [place] [address] Care Team Providers Care Resident Care Assistant Name Role Phone Alberto Leonardo MD Primary Care Provider [phone] Reason for Visit * Reason Comments Med Refill Encounter Details Date Type Department Care Team (Late st Contact Info) Description 10/09/2023 Refill [facility] Internal Medicine/Pediatrics [address] [place] [address] 1 [place] [address] Alberto Leonardo MD [address] [place] [address], 1 [place] [address] Bronchitis Social History Tobacco Use Types Packs/Day Years [...] often do you attend chur ch or pentecostal services? More than 4 times per year 09/04/2021 Do you belong to any clubs o r organizations such as restorationism groups, unions, fraternal or athletic groups, or [...] Answer Date Recorded Total Score 4 01/18/2023 [facility] of Occupat ional Health - Occupational Stress [...] Recorded Do you need help finding a vencor hospitalal career center and/or a training program? [...] Telephone Encounter - Jami Griffin CMA - 10/09/2023 2:17 PM EDT duplicate documented in this encounter Plan of Treatment Upcoming Encounters Date Type Department Care Team (Late st Contact Info) Description 10/29/2024 11:30 AM EDT Office Visit [facility] Cardiology [address] [place] [address] Rose Marie Goode MD [address] [place] [address] documented as of this encounter Goals Goal Patient Goal Type Associated Problems Recent Progress Patient-Stated? Author SNF General Yes Flora Ornelas LSW Note: Evaluation of progress towards goal: DC to SNF or home with HHC (pending clinical course). Pt symptoms improved, goal is home; declining HHC. documented as of this encounter Visit Diagnoses Diagnosis Bronchitis Bronchitis, not specified as acute or chronic documented in this encounter Additional Health Concerns Assessment Noted Time PHQ-9 Depression Total Score: 4 01/19/20 23 9:00 AM EST documented as of this encounter Care Teams Resident Care Assistant Relationship Specialty Start Date End Date Alberto Leonardo MD [address] [place] [address], [address] [place], [place] [id number] PCP - General Pediatrics 04/13/23 documented as of this encounter
--- OUTSIDE RECORDS SUMMARY | 2024-10-15 11:27 | XMS_ITS | Encounter Summary ---
Author Organization [facility] Address [address] [place] [address] Phone Care Team Providers Care Mortgage Lender Name Role Phone Alberto Leonardo MD Primary Care Provider + Encounter Details Date Type Department Care Team (Late st Contact Info) Description 07/25/2019 Orders Only [email or web address] LEGACY [address] [place] [address] Conversion, Onbase Social History Tobacco Use Types [...] r Schedule OUTSIDE LAB SCAN Lab Ordered: 07/25/2019 documented as of this encounter Visit Diagnoses Not on filedocumented in this encounter Care Teams Mortgage Lender Relationship Specialty Start Date End Date Alberto Leonardo MD PCP - General 06/28/18 documented as of this encounter
--- OUTSIDE RECORDS SUMMARY | 2024-10-15 11:27 | XMS_ITS | Encounter Summary ---
Author Organization [employer] Address [facility] [place]-[id number] [facility] [place] [address] Care Team Providers Care Senior Marketing Analyst Name Role Phone Alberto Leonardo MD Primary Care Provider [phone] Encounter Details Date Type Department Care Team (Late st Contact Info) Description 03/27/2023 Telephone [facility] Internal Medicine/Pediatrics [address] [place] [address] 1 [place] [address] Alberto Leonardo MD [address] [place] [address], [address] [place] [address] Social History Tobacco Use Types [...] often do you attend chur ch or jew services? More than 4 times per year [...] Answer Date Recorded Total Score 4 01/18/2023 [facility] Questionnaire Answer Date Recorded [...] Recorded Do you need help finding a [facility] career center and/or a training program? [...] Miscellaneous Notes * Telephone Encounter - Maren Burgessl - 03/27/2023 1:17 PM EST FYI: Keshia said that she has tested positive to COVID 19, but she thinks she is at the end of it. She is thinking that her raspy cough was probably COVID and she didn't realize it. She just wanted to let you know. documented in this encounter Plan of Treatment Upcoming Encounters Date Type Department Care Team (Late st Contact Info) Description 10/29/2024 11:30 AM EDT Office Visit [facility] [address] [place] [id number] Rose Marie Goode MD [address] [place] [address] documented as of this encounter Goals Goal [...] documented as of this encounter Care Teams Senior Marketing Analyst Relationship Specialty Start Date End Date Alberto Leonardo MD [address] [place] [address], [address] [place] [address] PCP - General Pediatrics 04/13/23 documented as of this encounter
--- OUTSIDE RECORDS SUMMARY | 2024-10-15 11:27 | XMS_ITS | Encounter Summary ---
Author Organization [employer] [facility] [employer] Address [facility] [place]-[id number] [address] [place] [address] Care Team Providers Care Electrician Apprentice Powerhouse Name Role Phone Alberto Leonardo MD Primary Care Provider [phone] Reason for Visit * Reason Comments Med Refill Encounter Details Date Type Department Care Team (Late st Contact Info) Description 12/28/2020 Refill [facility] Ear, Nose and Throat [address] [place] [phone] Marian Ayon, PA-C [address] [facility] [address] [place], [place] [id number] Chronic sinusitis, unspecified location Social History Tobacco [...] PHQ-2 Answer Date Recorded Total Score 0 12/16/2020 Childcare Answer Date Recorded Childcare Unknown 07/18/2018 [...] have Coronavirus / COVID-19? No / Unsure 12/30/2020 12:41 PM EST documented as of this encounter Plan of Treatment Upcoming Encounters Date Type Department Care Team (Late st Contact Info) Description 10/29/2024 11:30 AM EDT Office Visit [facility] [address] [place] [address] Rose Marie Goode MD [address] [place] [address] documented as of this encounter Visit Diagnoses Diagnosis Chronic sinusitis, unspecified location documented in this encounter Additional Health Concerns Infection Onset Date Last Indicated Resolved Time COVID-19 Rule-Out 05/11/2021 05/11/2021 05/11/2021 4:10 PM EDT COVID-19 Positive 05/11/2021 05/11/2021 06/01/2021 11:12 PM EDT COVID-19 Rule-Out 03/11/2023 03/11/2023 03/11/2023 3:46 PM EST COVID-19 Rule-Out 03/11/2023 03/11/2023 03/11/2023 5:20 PM EST Assessment Noted Time PHQ-9 Depression Total Score: 0 12/17/19 9:57 AM EST documented as of this encounter Care Teams Electrician Apprentice Powerhouse Relationship Specialty Start Date End Date Alberto Leonardo MD [address] [place] [address], [address] [place], [place] [id number] PCP - General Pediatrics 04/13/23 documented as of this encounter
--- OUTSIDE RECORDS SUMMARY | 2024-10-15 11:27 | XMS_ITS | Encounter Summary ---
Author Organization [facility] Address [facility]-[id number] [address] [place] [address] Care Team Providers Care Mcat Instructor Name Role Phone Alberto Leonardo MD Primary Care Provider [phone] Encounter Details Date Type Department Care Team (Latest Contact Info) Description 10/09/2024 Results Follow-Up [facility] Cardiology [address] [place] [address] Marilyn Fleming RN Comprehensive metabolic panel, Thyroid profile includes TSH FT4 Social History Tobacco Use Types Packs/Day Years [...] often do you attend chur ch or orthodoxy services? More than 4 times per year 09/04/2021 Do you belong to any clubs o r organizations such as latter day groups, unions, fraternal or athletic groups, or [...] 09/04/2021 PHQ-2 Answer Date Recorded Total Score 6 01/25/2024 [facility] - Occupational Stress Questionnaire Answer Date Recorded [...] got money to buy more. Never True 08/27/2024 Within the past 12 months th e food we bought just didn't last and we didn't have money to get more. Never True 08/27/2024 Purpose - Life Answer Date Recorded I have a purpose and direction in my life. Stron gly Agree 09/04/2021 Comments No Sex and Gender Information Value Date Recorded Sex Assigned at Female 09/19/2022 9:02 AM EDT Legal Sex Female 11:28 AM EDT Gender Identity Female 09/19/2022 9:02 AM EDT Sexual Orientation Straight 09/19/2022 9: 02 AM EDT documented as of this encounter Plan of Treatment Upcoming Encounters Date Type Department Care Team (Late st Contact Info) Description 10/29/2024 11:30 AM EDT Office Visit [facility] [address] [place] [address] Rose Marie Goode MD [address] [place] [address] documented as of this encounter Goals Goal [...] Assessment Noted Time PHQ-9 Depression Total Score: 6 01/25/20 24 1:00 PM EST documented as of this encounter Care Teams Mcat Instructor Relationship Specialty Start Date End Date Alberto Leonardo MD [address] [place] [address], [address] [place], [place] [id number] PCP - General Pediatrics 04/13/23 documented as of this encounter
--- OUTSIDE RECORDS SUMMARY | 2024-10-15 11:27 | XMS_ITS | Encounter Summary ---
Author Organization [facility] Address [facility]-[id number] [address] [place] [address] Care Team Providers Care Operations Controller Name Role Phone Alberto Leonardo MD Primary Care Provider [phone] Reason for Visit * Reason Onset Date Comments heach/neck pain 09/27/2023 Encounter Details Date Type Department Care Team (Late st Contact Info) Description 09/27/2023 Telephone [facility] Internal Medicine/Pediatrics [address] [facility] 1 [place] [address] Jami Griffin CMA heach/neck pain Social History Tobacco Use Types Packs/Day Years [...] often do you attend chur ch or episcopal services? More than 4 times per year 09/04/2021 Do you belong to any clubs o r organizations such as muslim groups, unions, fraternal or athletic groups, or [...] Answer Date Recorded Total Score 4 01/18/2023 [facility] of Occupat ional Health - Occupational Stress [...] got money to buy more. Never True 04/13/2023 Within the past 12 months th e food we bought just didn't last and we didn't have money to get more. Never True 04/13/2023 Purpose - Life Answer Date Recorded I have a purpose and direction in my life. Stron ck Agree 09/04/2021 Comments No Sex and Gender Information Value Date Recorded Sex Assigned at Female 09/19/2022 9:02 AM EDT Legal Sex Female 11:28 AM EDT Gender Identity Female 09/19/2022 9:02 AM EDT Sexual Orientation Straight 09/19/2022 9: 02 AM EDT documented as of this encounter Miscellaneous Notes * Telephone Encounter - Jami Griffin CMA - 09/27/2023 4:17 PM EDT Patient called regarding fall she had last month. She went to ER and had Brain and Cervical spine CT done which were normal. She is continuing to have pain in her neck which shoots into her head . She has an appointment but she said she would like another CT done because she feels they may have missed something. * Telephone Encounter - Alberto Leonardo MD - 09/27/2023 4:17 PM EDT I'll check her at her appointment, but unlikely anything was missed on initial imaging. documented in this encounter Plan of Treatment Upcoming Encounters Date Type Department Care Team (Late st Contact Info) Description 10/29/2024 11:30 AM EDT Office Visit [facility] [address] [place] [address] Rose Marie Goode MD [address] [place] [address] documented as of this encounter Goals Goal [...] documented as of this encounter Care Teams Operations Controller Relationship Specialty Start Date End Date Alberto Leonardo MD [address] [place] [address], [address] [place] [address] PCP - General Pediatrics 04/13/23 documented as of this encounter
--- OUTSIDE RECORDS SUMMARY | 2024-10-15 11:27 | XMS_ITS | Encounter Summary ---
Author Organization [facility] Address [id number] [address] [place] [address] Care Team Providers Care Parboiler Name Role Phone Alberto Leonardo MD Primary Care Provider [phone] Encounter Details Date Type Department Care Team (Late st Contact Info) Description 06/06/2022 Orders Only [facility] Internal Medicine/Pediatrics [address] [place] [phone] Tia Ryan RMA Chronic sinusitis, unspecified location Social History Tobacco [...] often do you attend chur ch or shinto services? More than 4 times per year 09/04/2021 Do you belong to any clubs o r organizations such as judaism groups, unions, fraternal or athletic groups, or [...] Answer Date Recorded Total Score 1 12/14/2021 [facility] of Occupat ional Health - Occupational Stress [...] Recorded Do you need help finding a [employer] [facility] career center and/or a training program? [...] Cardiology [address] [place] [address] Rose Marie Goode MD [address] [place] [address] documented as of this encounter Goals Goal Patient Goal Type Associated Problems Recent Progress Patient-Stated? Author SNF General Yes Flora Ornelas LSW Note: Evaluation of progress towards goal: DC to SNF or home with HHC (pending clinical course). Pt symptoms improved, goal is home; declining HHC. documented as of this encounter Procedures Procedure Name Priority Date/Time Associated Diagnosis Comments AMB REFERRAL TO ENT Routine 06/06/2022 Chronic sinusitis, unspecified location documented in this encounter Results * Ambulatory referral to ENT (06/06/2022) 06/06/2022 us Alberto Leonardo MD OUTPATIENT REFERRAL ORDERABLE S Final Result MANUALLY TRANSCRIBED RESULTS documented in this encounter Visit Diagnoses Diagnosis Chronic sinusitis, unspecified location documented in this encounter Additional Health Concerns Infection Onset Date Last Indicated Resolved Time COVID-19 Rule-Out 03/11/2023 03/11/2023 03/11/2023 3:46 PM EST COVID-19 Rule-Out 03/11/2023 03/11/2023 03/11/2023 5:20 PM EST Assessment Noted Time PHQ-9 Depression Total Score: 1 12/15/19 22 1:00 PM EST documented as of this encounter Care Teams Parboiler Relationship Specialty Start Date End Date Alberto Leonardo MD [address] [place] [address], [address] [place] [address] PCP - General Pediatrics 04/13/23 documented as of this encounter
--- OUTSIDE RECORDS SUMMARY | 2024-10-15 11:27 | XMS_ITS | Encounter Summary ---
Author Organization [employer] Address [id number] [address] [place] [address] Care Team Providers Care Machine Tack Puller Name Role Phone Alberto Leonardo MD Primary Care Provider [phone] Reason for Visit * Reason Onset Date Comments Med Refill 10/11/2024 Encounter Details Date Type Department Care Team (Late st Contact Info) Description 10/11/2024 Refill [facility] Cardiology [address] [place] [address] Olga Horowitz, TETO Med Refill Social History Tobacco Use Types Packs/Day Years [...] often do you attend chur ch or tenriism services? More than 4 times per year 09/04/2021 Do you belong to any clubs o r organizations such as orthodoxy groups, unions, fraternal or athletic groups, or [...] Answer Date Recorded Total Score 6 01/25/2024 [facility] of Occupat ional Health - Occupational Stress [...] Do you need help finding a l ocal career center and/or a training program? No [...] Cardiology [address] [place] [address] Rose Marie Goode MD [address] [place] [address] documented as of this encounter Goals Goal [...] documented as of this encounter Care Teams Machine Tack Puller Relationship Specialty Start Date End Date Alberto Leonardo MD [address] [place] [address], [address] [place], [place] [id number] PCP - General Pediatrics 04/13/23 documented as of this encounter
--- OUTSIDE RECORDS SUMMARY | 2024-10-15 11:27 | XMS_ITS | Encounter Summary ---
Author Organization [employer] Address [facility]-[id number] [address] [place] [address] Care Team Providers Care Photo Machine Operator Name Role Phone Alberto Leonardo MD Primary Care Provider [phone] Encounter Details Date Type Department Care Team (Late st Contact Info) Description 06/01/2021 Telephone [facility] [address] [facility] [address] [place] [phone] Umesh Doran MD [address] [place] [address] Social History Tobacco Use Types Packs/Day Years [...] Answer Date Recorded Total Score 0 03/24/2021 Childcare Answer Date Recorded Childcare Unknown 07/18/2018 Employment Answer Date Recorded Employment Unknown 07/18/2018 Purpose - Life Answer Date Recorded Purpose and direction in life Unknown Comments No Sex and Gender Information Value Date Recorded Sex Assigned at Female 09/19/2022 9:02 AM EDT Legal Sex Female 11:28 AM EDT Gender Identity Female 09/19/2022 9:02 AM EDT Sexual Orientation Straight 09/19/2022 9: 02 AM EDT COVID-19 Exposure Response Date Recorded In the last 10 days, have yo u been in contact with someone who was confirmed or suspected to have Coronavirus/COVID-19? 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 Lori documented in this encounter Plan of Treatment Upcoming Encounters Date Type Department Care Team (Late st Contact Info) Description 10/29/2024 11:30 AM EDT Office Visit [facility] Card[facility] [address] [place] [address] Rose Marie Goode MD [address] [place] [address] documented as of this encounter Visit Diagnoses Not on filedocumented in this encounter Additional Health Concerns Infection Onset Date Last Indicated Resolved Time COVID-19 Positive 05/11/2021 05/11/2021 06/01/2021 11:12 PM EDT COVID-19 Rule-Out 03/11/2023 03/11/2023 03/11/2023 3:46 PM EST COVID-19 Rule-Out 03/11/2023 03/11/2023 03/11/2023 5:20 PM EST Assessment Noted Time PHQ-9 Depression Total Score: 0 03/24/19 10:03 AM EST documented as of this encounter Care Teams Photo Machine Operator Relationship Specialty Start Date End Date Alberto Leonardo MD [address] [place] [address], [address] [place] [address] PCP - General Pediatrics 04/13/23 documented as of this encounter
--- OUTSIDE RECORDS SUMMARY | 2024-10-15 11:27 | XMS_ITS | Encounter Summary ---
Author Organization [facility] Address [address] [place] [address] Phone Care Team Providers Care Technical Sales Support Specialist Name Role Phone Alberto Leonardo MD Primary Care Provider + Encounter Details Date Type Department Care Team (Late st Contact Info) Description 08/04/2018 Orders Only [facility] LE[facility] [address] [place] [address] Conversion, Onbase Social History Tobacco Use Types [...] r Schedule OUTSIDE LAB SCAN Lab Ordered: 08/04/2018 documented as of this encounter Visit Diagnoses Not on filedocumented in this encounter Care Teams Technical Sales Support Specialist Relationship Specialty Start Date End Date Alberto Leonardo MD PCP - General 06/28/18 documented as of this encounter
--- OUTSIDE RECORDS SUMMARY | 2024-10-15 11:27 | XMS_ITS | Encounter Summary ---
Author Organization [facility] Address [facility] [place]-[id number] [facility] [place] [address] Care Team Providers Care Potato Loader Name Role Phone Alberto Leonardo MD Primary Care Provider [phone] Encounter Details Date Type Department Care Team (Late st Contact Info) Description 02/22/2023 Telephone [facility] Internal Medicine/Pediatrics [address] [place] [address] 1 [place] [address] Alberto Leonardo MD [address] [place] [address], [address] [place] [address] Social History Tobacco Use Types [...] often do you attend chur ch or faith services? More than 4 times per year [...] Answer Date Recorded Total Score 4 01/18/2023 [facility]ational [facility] Questionnaire Answer Date [...] Recorded Do you need help finding a [facility] career [facility] and/or a training program? No 09/04/2021 Hunger Screening Answer Date Recorded Within the past 12 months we worried whether our food would run out before we got money to buy more. Never True 01/18/2023 Within the past 12 months th e food we bought just didn't last and we didn't have money to get more. Never True 01/18/2023 Purpose - Life Answer Date Recorded I [...] * Telephone Encounter - Maren Kohler - 02/22/2023 11:37 AM EST Audrey called and said she had her test done today, but is wondering if you can call the patches in for her, because she is started to really to be in pain. She is hoping to get ahead of the pain. She said that she will come in to see you if you need to see her. Please advise * Telephone Encounter - Alberto Leonardo MD - 02/22/2023 11:37 AM EST Not to be difficult but what test and what patches? * Telephone Encounter - Maren Kohler - 02/22/2023 11:37 AM EST She had a ultrasound today of a buttock mass. It looks like previously she had lidocaine 5%patches that the er wrote for her back in 2021. * Telephone Encounter - Maren Kohler - 02/22/2023 11:37 AM EST She has an appt on Feb 28 with pain management and she got some low dose patches from [employer]. She said she doesn't need the patches called in from us anymore, and appreciated us. documented in this encounter Plan of Treatment Upcoming Encounters Date Type Department Care Team (Late st Contact Info) Description 10/29/2024 11:30 AM EDT Office Visit [facility] Cardiology [address] [place] [address] Rose Marie Goode MD [address] [place] [address] documented as of this encounter Goals Goal [...] documented as of this encounter Care Teams Potato Loader Relationship Specialty Start Date End Date Alberto Leonardo MD [address] [place] [address], [address] [place] [address] PCP - General Pediatrics 04/13/23 documented as of this encounter
--- OUTSIDE RECORDS SUMMARY | 2024-10-15 11:27 | XMS_ITS | Encounter Summary ---
Author Organization [facility] Address [address] [place] [address] Phone Care Team Providers Care Sail Finisher Hand Name Role Phone Alberto Leonardo MD Primary Care Provider + Encounter Details Date Type Department Care Team (Late st Contact Info) Description 08/03/2020 Orders Only [facility] LEGACY [address] [place] [address] Conversion, Onbase Social History Tobacco Use Types [...] r Schedule OUTSIDE LAB SCAN Lab Ordered: 08/03/2020 documented as of this encounter Visit Diagnoses Not on filedocumented in this encounter Care Teams Sail Finisher Hand Relationship Specialty Start Date End Date Alberto Leonardo MD PCP - General 06/28/18 documented as of this encounter
--- OUTSIDE RECORDS SUMMARY | 2024-10-15 11:27 | XMS_ITS | Encounter Summary ---
Author Organization [facility] tem Address [id number] [address] [place] [address] Care Team Providers Care Robotics Software Engineer Name Role Phone Alberto Leonardo MD Primary Care Provider [phone] Encounter Details Date Type Department Care Team (Late st Contact Info) Description 05/31/2022 Orders Only [facility] Internal Medicine/Pediatrics [address] [place] [id number] External, Scanning Provider Social History Tobacco Use [...] often do you attend chur ch or quaker services? More than 4 times per year 09/04/2021 Do you belong to any clubs o r organizations such as gnosticism groups, unions, fraternal or athletic groups, or [...] Answer Date Recorded Total Score 1 12/14/2021 [facility] [place] [facility] Occupat ional [facility] - Occupational Stress [...] Recorded Do you need help finding a [employer] [facility] career center and/or a training program? [...] have Coronavirus / COVID-19? No / Unsure 05/02/2022 9:53 AM EDT documented as of this encounter Plan of Treatment Upcoming Encounters Date Type Department Care Team (Late st Contact Info) Description 10/29/2024 11:30 AM EDT Office Visit [facility] Cardiology [address] [place] [address] Rose Marie Goode MD [address] [place] [address] documented as of this encounter Goals Goal Patient Goal Type Associated Problems Recent Progress Patient-Stated? Author SNF General Yes Flora Ornelas, BRISA Note: Evaluation of progress towards goal: DC to SNF or home with HHC (pending clinical course). Pt symptoms improved, goal is home; declining HHC. documented as of this encounter Procedures Procedure Name Priority Date/Time Associated Diagnosis Comments CT SINUSES WO CONT Routine 05/30/2022 documented in this encounter Results * CT sinuses without contrast (05/30/2022) Anatomical Region Laterality Modality Neuro, Face, Neuro Covera N/A Comput ed Tomography 05/30/2022 us Scanning Provider External IMG CT ORDERABLES Fin al Result documented in this encounter Visit Diagnoses Not on filedocumented in this encounter Additional Health Concerns Infection Onset Date Last Indicated Resolved Time COVID-19 Rule-Out 03/11/2023 03/11/2023 03/11/2023 3:46 PM EST COVID-19 Rule-Out 03/11/2023 03/11/2023 03/11/2023 5:20 PM EST Assessment Noted Time PHQ-9 Depression Total Score: 1 12/15/19 22 1:00 PM EST documented as of this encounter Care Teams Robotics Software Engineer Relationship Specialty Start Date End Date Alberto Leonardo MD [address] [place] [address], [address] [id number] PCP - General Pediatrics 04/13/23 documented as of this encounter
--- OUTSIDE RECORDS SUMMARY | 2024-10-15 11:27 | XMS_ITS | Clinical Summary ---
Author Organization Brightergy tem Address [id number] [address] [place] [address] Care Team Providers Care Ethylbenzene Oxidizer Name Role Phone Alberto Leonardo MD Primary Care Provider [phone] Allergies Active Allergy Reactions Criticality Noted Date Comments House Dust Mite 12/22/2021 Sulfa (Sulfonamide Antibiotics) Other (See Comments) 07/24/2019 Medications amiodarone (PACERONE) 200 mg tablet Take 1 tablet (200 mg total) by mouth in the morning. 01/03/20 24 025 Active famotidine (PEPCID) 20 mg tablet Take 1 tablet (20 mg total) by mouth daily as needed. Active fluticasone propionate (FLONASE) 50 mcg/actuation nasal spray Administer 1 spray into each nostril every morning. 16 g 1 02/08/19 25 Active cyclobenzaprin e (FLEXERIL) 5 mg tablet Take 1 tablet (5 mg total) by mouth 2 (two) times a day as needed for muscle spasms. 60 tablet 2 04/23/19 25 Active DULoxetine (CYMBALTA) 20 mg capsule Take 1 capsule (20 mg total) by mouth in the morning. 05/01/19 25 Active flecainide (TAMBOCOR) 100 mg tablet Take 1 tablet (100 mg total) by mouth every 12 (twelve) hours. Active OXcarbazepine (TRILEPTAL) 300 mg tablet Take 1 tablet (300 mg total) by mouth in the morning and 1 tablet (300 mg total) before bedtime. Active SPIRIVA RESPIMAT 2.5 mcg/actuation mist INHALE 2 SPRAY(S) BY MOUTH ONCE DAILY 12 g 3 08/23/19 25 Active benzonatate (TESSALON PERLES) 200 mg capsuleIndicat ions:Bronchiti s Take 1 capsule (200 mg total) by mouth 3 (three) times a day as needed for cough. 20 capsule 08/23/19 25 Active gabapentin (NEURONTIN) 300 mg capsule Take 1 capsule (300 mg total) by mouth 3 (three) times a day. 08/13/19 25 Active baclofen 5 mg tablet TAKE 1/2 TO 1 (ONE-HALF TO ONE) TABLET BY MOUTH TWICE DAILY NEEDED (TENSION/TIGH TNESS) Active albuterol (PROVENTIL,SHIAR TOLIN) 2.5 mg /3 mL (0.083 %) nebulizer solutionIndica tions:Bronchit is USE 1 VIAL IN NEBULIZER EVERY 6 HOURS NEEDED FOR WHEEZING FOR SHORTNESS OF BREATH FOR COUGH 75 mL 09/03/19 25 Active lisinopriL (PRINIVIL,ZEST RIL) 20 mg tabletIndicati ons:Cardiomyop athy, unspecified type (CMS-HCC) TAKE 1 TABLET BY MOUTH IN THE MORNING 90 tablet 09/19/19 25 Active apixaban (ELIQUIS) 5 mg (74 tabs) tablets,dose pack tablet Take 1 tablet (5 mg total) by mouth in the morning and 1 tablet (5 mg total) before bedtime. 180 tablet 3 09/25/19 25 Active carvediloL (COREG) 3.125 mg tablet Take 1 tablet (3.125 mg total) by mouth in the morning and 1 tablet (3.125 mg total) in the evening. Take with meals. 60 tablet 11 10/09/19 25 Active pravastatin (PRAVACHOL) 20 mg tablet Take 1 tablet (20 mg total) by mouth in the morning. 90 tablet 2 10/12/19 25 Active carvediloL (COREG) 6.25 mg tablet Take 0.5 tablets (3.125 mg total) by mouth in the morning and 0.5 tablets (3.125 mg total) in the evening. Take with meals. 04/16/19 22 025 Discontinued(Re order) pravastatin (PRAVACHOL) 20 mg tablet Take 1 tablet (20 mg total) by mouth in the morning. 025 Discontinued(Re order) apixaban (ELIQUIS) 5 mg (74 tabs) tablets,dose pack tablet Take 1 tablet (5 mg total) by mouth in the morning and 1 tablet (5 mg total) before bedtime. 180 tablet 1 03/20/19 25 025 Discontinued(Re order) lisinopriL (PRINIVIL,ZEST RIL) 20 mg tabletIndicati ons:Cardiomyop athy, unspecified type (CMS-HCC) Take 1 tablet (20 mg total) by mouth in the morning. 90 tablet 1 05/15/19 25 025 Discontinued apixaban (ELIQUIS) 5 mg (74 tabs) tablets,dose pack tablet Take 1 tablet (5 mg total) by mouth in the morning and 1 tablet (5 mg total) before bedtime. 180 tablet 1 09/17/19 025 Discontinued(Re order) carvediloL (COREG) 6.25 mg tablet Take 0.5 tablets (3.125 mg total) by mouth in the morning and 0.5 tablets (3.125 mg total) in the evening. Take with meals. 60 tablet 6 10/01/19 25 025 Discontinued(Re order) Active Problems Problem Noted Date Diagnosed Date PRISCILLA (obstructive sleep apnea) 05/16/2024 Shortness of breath 03/13/2024 Other chest pain 03/13/2024 Left bundle branch block 03/13/2024 Hyperlipidemia 01/18/2023 Paroxysmal atrial fibrillation 06/17/2022 Difficulty voiding 12/22/2021 Overview (03/23/2022): ==== 03/23/2022 ==== #### s/p cysto with U-M solution dilaton--although no significant urethral narrowing noted.. 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 Last dilation was 5 years ago. Recently has noticed some weakening of her urine stream. She is requesting to be set up for urethral dilatation under anesthesia. Assessment & Plan (03/23/2022 12:07 PM EST): Still feels like she has some difficulty urinating. She did not have any type of cystocele. Urethra looked good. No undue angulation. Would like to obtain a voiding diary to see what her functional capacity bladder is. Return clinic. Check PVR then as well. Intractable low back pain 09/04/2021 Viral gastroenteritis 08/03/2020 Chronic sinusitis 05/21/2020 GERD (gastroesophageal reflux disease) Osteoarthritis Hypertension Resolved Problems Problem Noted Date Diagnosed Date Resolved Date Obesity, morbid 11/05/2020 05/16/2024 Ischemic colitis 08/06/2020 06/17/2022 Pulmonary embolism COPD (chronic obstructive pulmonary disease) 02/22/2024 Encounters Date Type Department Care Team Description 10/11/2024 Refill [facility] [address] [place] [phone] Olga Horowitz RN Med Refill 10/09/2024 Results Follow-Up [facility] [address] [place] [phone] Marilyn Fleming RN Comprehensive metabolic panel, Thyroid profile includes TSH FT4 10/08/2024 Refill [facility] [address] [place] [phone] Olga Horowitz RN Med Refill 10/08/2024 Travel 09/30/2024 Refill [facility] [address] [place] [phone] Henrietta Torres RN Med Refill 09/25/2024 Results Follow-Up [facility]iology [address] [place] [phone] Marilyn Fleming RN Echo complete W/O contrast 09/24/2024 2:45 PM EDT - 09/24/2024 11:59 PM EDT Hospital Encounter [facility] - Cardiovascular [address] [place] [address] Samm Hyde MD Shortness of breath Discharge Disposition: Home 09/24/2024 Travel 09/24/2024 Refill [facility] [address] [place] [address] Kathleen Hernandez, TETO Med Refill 09/16/2024 Refill [facility] [address] [place] [address] Zahraa Gan, TETO Med Refill 09/14/2024 Refill [facility] [address] [place] [address] Eloisa Sellers, BORING MILL OPERATOR-ELECTRONIC SERVICE TECHNICIAN Med Refill 09/06/2024 Travel 09/02/2024 Travel 08/31/2024 Refill [facility] Internal Medicine/Pediatric s [address] [place] [address] Alberto Leonardo MD Bronchitis 08/27/2024 11:15 AM EDT Office Visit [facility] [address] [place] [address] Estrada Farrar MD Nkadi, Samm Hardy MD Shortness of breath (Primary Dx) 08/27/2024 Travel 08/22/2024 10:00 AM EDT Office Visit [facility] [address] [place] [address] Alberto Leonardo MD Bronchitis (Primary Dx) 08/22/2024 Refill [facility] [address] [place] [address] Alberto Leonardo MD Bronchitis 08/22/2024 Travel 08/12/2024 Travel 08/06/2024 8:20 PM EDT - 08/06/2024 11:02 PM EDT Emergency [facility] - Emergency [address] [place] [address] Hernandez Ward MD Vasovagal syncope (Primary Dx) Discharge Disposition: Home 08/06/2024 Travel 07/30/2024 10:00 AM EDT Office Visit [facility] [address] [place] [address] Alberto Leonardo MD Chronic sinusitis, unspecified location (Primary Dx) 07/30/2024 Travel 07/22/2024 Telephone [facility] Pulmonary/Sleep Medicine [address] [place] [address] Inez Mc LPN from Last 3 Months Immunizations Immunization Administration Dates Next Due COVID-19, mRNA, LNP-S, PF, 100mcg/0.5mL Dose ,02/28/2020 Influenza Vaccine, Quadrivalent, Adjuvanted 11/06 Influenza, High-dose, Quadrivalent 11/12/2020 Influenza, Injectable, quadrivalent (PF) 018,11/18/2014 Influenza, Unspecified 11/01/2018 Pneumococcal Conjugate 13-Valent 11/12/2019,11/06 Pneumococcal Polysaccharide 02/06/2013, 0 Tdap 08/07/2023 Zoster Live 02/06/2013 Zoster Vaccine Recombinant 11/12/2019 Family History Medical History Relation Name Comments Blood Clots Father No Known Problems Mother Breast cancer Neg Hx Relation Name Status Comments Father Mother Social History Tobacco Use Types Packs/Day Years Used Date Smoking Tobacco: Never Smokeless Tobacco: Never Tobacco Cessation:Counseling Given: No Alcohol Use Standard Drinks/Week Comments Not Currently [...] often do you attend chur ch or scientologist services? More than 4 times per year 09/04/2021 Do you belong to any clubs o r organizations such as catholic groups, unions, fraternal or athletic groups, or [...] Answer Date Recorded Total Score 6 01/25/2024 [facility] - Occupational [...] Recorded Do you need help finding a [facility] and/or a training [...] Orientation Straight 09/19/2022 9: 02 AM EDT Last Filed Vital Signs Vital Sign Reading Time Taken Comments Blood Pressure 130/80 08/27/2024 11:09 AM EDT Pulse 66 08/27/2024 11:09 AM EDT Temperature 36.7 C (98 F) 08/22/2024 10:06 AM EDT Respiratory Rate 20 08/06/2024 10:30 PM EDT Oxygen Saturation 98% 08/27/2024 11:09 AM EDT Inhaled Oxygen Concentration - - Weight 93.9 kg (207 lb) 08/27/2024 11:09 AM EDT Height 165.1 cm (5' 5 ) 08/27/2024 11:09 AM EDT Body Mass Index 34.45 08/27/2024 11:09 AM EDT Plan of Treatment Upcoming Encounters Date Type Department Care Team (Late st Contact Info) Description 10/29/2024 11:30 AM EDT Office Visit [facility] [address] [place] [address] Rose Marie Goode MD [address] [place] [address] Health Maintenance Due Date Last Done Comments COVID-19 Vaccine (2023-2 5 season) 2024 11/06/2023, 11/02/2022, 11/25/2021, Additional history exists Influenza Vaccine 10/07/2024 11/06/2023, , 11/25/2021, Additional history exists Depression Screening 01/24/2025 01/25/2024 Fall Risk Screening 01/24/2025 01/25/2024 Medicare Annual Wellness Visit 01/24/2025 1 03/27/2023, 01/18/2023, 12/14/2021, Additional history exists Tobacco Screening 08/27/2025 08/27/2024 DTaP,Tdap and Td Vaccines (2 - Td or Tdap) 08/06/2033 08/07/2023 Zoster (Shingles) Vaccine Completed 2024, 12/13/2023, 01/17/2020, Additional history exists Goals Goal Patient Goal Type Associated Problems Recent Progress Patient-Stated? Author SNF General Yes Flora Ornelas, BRISA Note: Evaluation of progress towards goal: DC to SNF or home with HHC (pending clinical course). Pt symptoms improved, goal is home; declining HHC. Medical Devices Not on file Procedures Procedure Name Priority Date/Time Associated Diagnosis Comments THYROID PROFILE INCLUDES TSH FT4 Routine 10/08/2024 2:00 PM EDT Medication management COMPREHENSIVE METABOLIC PANEL Routine 10/08/2024 2:00 PM EDT Medication management ECHO COMPLETE WO CONTRAST Routine 09/24/2024 3:31 PM EDT Shortness of breath TROP I, HIGH SENSITIVITY 1 HOUR STAT 08/06/2024 9:23 PM EDT TROPONIN I, HIGH SENSITIVITY 0 HOUR STAT 08/06/2024 8:30 PM EDT TROPONIN I, HIGH SENSITIVITY 0 HOUR STAT 08/06/2024 8:30 PM EDT MAGNESIUM STAT 08/06/2024 8:30 PM EDT COMPREHENSIVE METABOLIC PANEL STAT 08/06/2024 8:30 PM EDT CBC WITH AUTO DIFFERENTIAL STAT 08/06/2024 8:30 PM EDT EXTRA TUBES PUENTE TOP ON ICE Routine 08/06/2024 8:29 PM EDT EXTRA TUBES BLUE TOP Routine 08/06/2024 8:29 PM EDT EXTRA TUBES Routine 08/06/2024 8:29 PM EDT EXTRA TUBES Routine 08/06/2024 8:29 PM EDT ECG 12-LEAD STAT 08/06/2024 8:25 PM EDT from Last 3 Months Results * Thyroid profile includes TSH FT4 (10/08/2024 2:00 PM EDT) FREE T4 1.01 0.61 - 1.60 ng/dL 10/08/2024 6:42 PM EDT [facility] TSH 1.84 0.49 - 4.67 uIU/mL 10/08/2024 6:42 PM EDT [facility] Blood Venous blood / Unknown Venipuncture / Unknown 10/08/2024 2:00 PM EDT 10/08/2024 2:00 PM EDT us Eloisa Sellres [employer]ING M[employer] OPERATOR-ELECTRONIC SERVICE TECHNICIAN LAB BLOOD ORDERABLES Final Result [facility] [address] [place] [address], [place] [phone] * (ABNORMAL) Comprehensive metabolic panel (10/08/2024 2:00 PM EDT) Only the most recent of2 resultswithin the time period is included. [facility] SODIUM 139 134 - 146 mmol/L 10/08/2024 6:34 PM EDT [facility] POTASSIUM 4.4 3.5 - 5.0 mmol/L 10/08/2024 6:34 PM EDT [facility] CHLORIDE 104 98 - 109 mmol/L 10/08/2024 6:34 PM EDT [facility] CARBON DIOXIDE 29 22 - 32 mmol/L 10/08/2024 6:34 PM EDT [facility] ANION GAP 6 5 - 15 mmol/L 10/08/2024 6:34 PM EDT [facility] BLOOD UREA NITROGEN 19 5 - 27 mg/dL 10/08/2024 6:34 PM EDT [facility] CREATININE 1.03(H) 0.40 - 1.00 mg/dL 10/08/2024 6:34 PM EDT [facility] Comment:METHOD TRACEABLE TO [facility] STANDARD GLUCOSE 107(H) 65 - 99 mg/dL 10/08/2024 6:34 PM EDT [facility] CALCIUM 9.3 8.5 - 10.5 mg/dL 10/08/2024 6:34 PM EDT [facility] TOTAL PROTEIN 6.5 6.0 - 8.0 g/dL 10/08/2024 6:34 PM EDT [facility] ALBUMIN 3.9 3.2 - 5.3 g/dL 10/08/2024 6:34 PM EDT [facility] ALKALINE PHOSPHATASE 104 39 - 130 U/L 10/08/2024 6:34 PM EDT [facility] AST 18 <=41 U/L 10/08/2024 6:34 PM EDT [facility] ALT 12 <=31 U/L 10/08/2024 6:34 PM EDT [facility] BILIRUBIN,TOTAL 0.4 0.3 - 1.2 mg/dL 10/08/2024 6:34 PM EDT [facility] EGFR Non-Race Dependent 54(L) >=60 ml/min/1.7 3sq.m 10/08/2024 6:34 PM EDT [facility] Comment: Reported eGFR is based on the CKD-EPI 2020 equation that does not use a race coefficient. Blood Venous blood / Unknown Venipuncture / Unknown 10/08/2024 2:00 PM EDT 10/08/2024 2:00 PM EDT us Eloisa Sellers BORING M[employer] OPERATOR-ELECTRONIC SERVICE TECHNICIAN LAB BLOOD ORDERABLES Final Result [facility] [address] [place] [address], [place] [phone] * Echo complete W/O contrast (09/24/2024 3:31 PM EDT) LVOT stroke volume 65.66 ml XCELERA LV Systolic Volume 67.60 mL XCELERA EF 45 % XCELERA FS 20 28 - 44 % XCELERA LV Diastolic Volume 124.00 mL XCELERA LVIDd 5.10 cm XCELERA LVIDs 4.10 cm XCELERA IVS 1.40 0.6 - 1.1 cm XCELERA PW 1.20 0.6 - 1.1 cm XCELERA LVOT diameter 2.00 cm XCELERA TDI 4.79 cm/s XCELERA MV TDI E' (medial) 4.79 cm/s XCELERA LA Volume Index 32.5 mL/m2 XCELERA E/A ratio 0.44 XCELERA E wave deceleration time 222.00 msec XCELERA MV Peak E Julian 42.70 cm/s XCELERA MV Peak A Julian 98.00 cm/s XCELERA LA size 3.90 cm XCELERA Aortic root 3.60 cm XCELERA LA volume 67.50 cm3 XCELERA RV diastolic dimension (basal) 36.0 mm XCELERA RVID d 3.0 cm XCELERA TAPSE 2.11 cm XCELERA AV peak julian 187.00 cm/s XCELERA LVOT peak julian 0.84 m/s XCELERA AV VTI 37.80 cm XCELERA LVOT peak VTI 20.90 cm XCELERA AV mean gradient 7.00 mmHg XCELERA AV peak gradient 13.99 mmHg XCELERA AV valve area 1.74 XCELERA Valve area - Index 0.8 XCELERA MV pressure 1/2 time 65.00 ms XCELERA MV valve area p 1/2 method 3.38 cm2 XCELERA TR Peak Julian 2.5 m/s XCELERA TR peak gradient 24.60 mmHg XCELERA PV mean gradient 2.00 mmHg XCELERA PV peak gradient 2.86 mmHg XCELERA LV ESV A2C 66.20 mL XCELERA LV ESV A4C 67.60 mL XCELERA LV RWT 2D 47.06 XCELERA Echo EF Estimated 45 % XCELERA AV Velocity Ratio 0.55 XCELERA Left Ventricle Mass 270.03719 [id number] 6 g XCELERA Interventricular Septum Diastolic Thickness by 2D 14 cm XCELERA Est. RA pressure 3 mmHg XCELERA RA area 19.1 cm2 XCELERA RV Peak Systolic Pressure 28 mmHg XCELERA Anatomical Region Laterality Modality Chest N/A Ultrasound Narrative 09/24/2024 4:37 PM EDT Left Ventricle: There is mild asymmetric increased wall thickness/hypertrophy. Systolic function is mildly decreased with an ejection fraction of 45-50%. Mitral Valve: There is mild regurgitation. There is no evidence of mitral valve stenosis. Aortic Valve: There is trace regurgitation. There is no evidence of aortic valve stenosis. Right Ventricle: Systolic function is normal. Tricuspid Valve: There is mild regurgitation. There is no evidence of tricuspid valve stenosis. Pericardium: There is no pericardial effusion. Left Ventricle Left ventricle appears normal in size. There is mild asymmetric increased wall thickness/hypertrophy. Systolic function is mildly decreased with an ejection fraction of 45-50%. See wall score diagram for wall motion abnormalities. Grade I diastolic dysfunction (impaired relaxation) is present. Lateral E' is 4.79 cm/s. Medial E' is 4.79 cm/s. Right Ventricle Right ventricular size appears normal. The right ventricular basal diameter is 36.0 mm. Systolic function is normal. Normal tricuspid annular plane systolic excursion. Abnormal systolic excursion velocity by TDI (<9.5cm/s). Left Atrium Left atrium volume index is normal. The left atrial volume index is 32.5 mL/m2. Right Atrium Right atrium is normal in size. The right atrial area is 19.1 cm2. IVC/SVC The right atrial pressure is estimated at 3 mmHg. There is normal collapse with deep inspiration. Mitral Valve The leaflets are mildly thickened. There is mild regurgitation. There is no evidence of mitral valve stenosis. Tricuspid Valve The leaflets are mildly thickened. There is mild regurgitation. There is no evidence of tricuspid valve stenosis. RVSP calculated at 28 mmHg. RVSP is based on RA pressure of 3 mmHg. Aortic Valve The aortic valve is trileaflet. The leaflets exhibit focal thickening. There is mild sclerosis. There is trace regurgitation. There is no evidence of aortic valve stenosis. Pulmonic Valve The pulmonic valve was not well visualized. Pulmonic valve structure is grossly normal. There is trace to mild regurgitation. There is no evidence of pulmonic valve stenosis. The peak gradient is 2.86 mmHg. The mean gradient is 2.00 mmHg. Ascending Aorta The aortic root is normal in size. Pericardium There is no pericardial effusion. The pericardium appears normal. Study Details A complete echo was performed using complete 2D, color flow Doppler and spectral Doppler. Overall the study quality was adequate. The study was difficult due to patient's body habitus. BP 158/89 Wall Scoring Baseline Score Index: 2.65 The following segments are dyskinetic: mid anteroseptal and mid inferoseptal. The following segments are akinetic: basal anterior, basal anteroseptal, basal inferoseptal, basal inferior, basal inferolateral, basal anterolateral and mid inferior. The following segments are hypokinetic: mid anterior, mid inferolateral, mid anterolateral, apical anterior, apical septal, apical inferior, apical lateral and apex. Samm Hyde MD CV ECHO ORDERABLES Final Result * Troponin I, High Sensitivity 1 Hour (08/06/2024 9:23 PM EDT) TROPONIN I, HIGH SENSITIVITY 11 <16 ng/L 08/06/2024 10:04 PM EDT [facility] Blood Venous blood / Unknown Venipuncture / Unknown 08/06/2024 9:23 PM EDT 08/06/2024 9:25 PM EDT us Mary Lou Romero B[employer]ING M[employer] OPERATOR-ELECTRONIC SERVICE TECHNICIAN LAB BLOOD ORDERABLES Final Result [facility] [address] [place] [address], * Troponin I, High Sensitivity 0 Hour (08/06/2024 8:30 PM EDT) TROPONIN I, HIGH SENSITIVITY 10 <16 ng/L 08/06/2024 9:25 PM EDT [facility] Blood Venous blood / Unknown Venipuncture / Unknown 08/06/2024 8:30 PM EDT 08/06/2024 8:34 PM EDT us Mary Lou Romero BORING M[employer] OPERATOR-ELECTRONIC SERVICE TECHNICIAN LAB BLOOD ORDERABLES Final Result [facility] [address] [place] [address], [place] * CBC auto differential (08/06/2024 8:30 PM EDT) WBC 5.3 4 - 11 x10E9/L 08/06/2024 8:51 PM EDT [facility] RBC Count 3.82 3.8 - 5.2 X10E12/L 08/06/2024 8:51 PM EDT [facility] Hemoglobin 12.3 11.7 - 15.5 g/dL 08/06/2024 8:51 PM EDT [facility] Hematocrit 36.3 35 - 47 % 08/06/2024 8:51 PM EDT [facility] MCV 95 80 - 100 fL 08/06/2024 8:51 PM EDT [facility] MCH 32.3 27 - 34 pg 08/06/2024 8:51 PM EDT [facility] MCHC 34.0 32 - 36 g/dL 08/06/2024 8:51 PM EDT [facility] RDW 13.6 11.5 - 15 % 08/06/2024 8:51 PM EDT [facility] Platelet Count 231 150 - 450 X10E9/L 08/06/2024 8:51 PM EDT [facility] MPV 7.3 7 - 12 fL 08/06/2024 8:51 PM EDT [facility] Neutrophils % 48.1 % 08/06/2024 8:51 PM EDT [facility] Lymphocytes % 35.8 % 08/06/2024 8:51 PM EDT [facility] Monocytes % 12.3 % 08/06/2024 8:51 PM EDT [facility] Eosinophils % 2.7 % 08/06/2024 8:51 PM EDT [facility] Basophils % 1.1 % 08/06/2024 8:51 PM EDT [facility] Neutrophils Absolute (A) 2.5 1.5 - 6.6 10*3/uL 08/06/2024 8:51 PM EDT [facility] Lymphocytes Absolute 1.9 1.0 - 3.5 10*3/uL 08/06/2024 8:51 PM EDT [facility] Monocytes Absolute 0.6 0.0 - 0.9 10*3/uL 08/06/2024 8:51 PM EDT [facility] Eosinophils Absolute 0.1 0.0 - 0.4 10*3/uL 08/06/2024 8:51 PM EDT [facility] Basophils Absolute 0.1 0.0 - 0.2 10*3/uL 08/06/2024 8:51 PM EDT [facility] Differential Type AUTOMATED DIFFERENTIAL 08/06/2024 8:51 PM EDT [facility] Blood Venous blood / Unknown Venipuncture / Unknown 08/06/2024 8:30 PM EDT 08/06/2024 8:34 PM EDT us Mary Lou Romero [employer]ING M[employer] OPERATOR-ELECTRONIC SERVICE TECHNICIAN LAB BLOOD ORDERABLES Final Result Performing Organization Address City/State/[facility] de Phone Number [facility] [address] [place] [address], * Magnesium (08/06/2024 8:30 PM EDT) MAGNESIUM 1.9 1.8 - 2.6 mg/dL 08/06/2024 8:59 PM EDT [facility] Blood Venous blood / Unknown Venipuncture / Unknown 08/06/2024 8:30 PM EDT 08/06/2024 8:34 PM EDT us Mary Lou Romero B[employer]ING M[employer] OPERATOR-ELECTRONIC SERVICE TECHNICIAN LAB BLOOD ORDERABLES Final Result Performing Organization Address City/[facility]/ZIP Co de Phone Number [address] [place] [address], [place] * Puente Top On Ice (08/06/2024 8:29 PM EDT) Extra Tube Auto Resulted 08/06/2024 10:02 PM EDT [facility] Blood Venous blood / Unknown 08/06/2024 8:29 PM EDT 08/06/2024 8:36 PM EDT Hernandez Ward MD LAB BLOOD ORDERABLES Final Resu lt Performing Organization Address [facility] Co de Phone Number [address] [place] [address], [place] * Light Blue Top (08/06/2024 8:29 PM EDT) Extra Tube Auto Resulted 08/06/2024 10:02 PM EDT [facility] Blood Venous blood / Unknown 08/06/2024 8:29 PM EDT 08/06/2024 8:34 PM EDT Hernandez Ward MD LAB BLOOD ORDERABLES Final Resu lt Performing Organization Address City/[facility]/ZIP Co de Phone Number [address] [place] [address], [place] * ECG 12 lead (08/06/2024 8:25 PM EDT) 08/06/2024 8:25 PM EDT Narrative [facility] - 08/06/2024 8:49 PM EDT Mary Lou Romero [employer] OPERATOR-ELECTRONIC SERVICE TECHNICIAN ECG ORDERABLES Final Resu lt [facility] from Last 3 Months Insurance [employer] Advance Directives Documents on File Type Date Recorded Patient Medical Lab Technologist Expl anation Advance Directive 06/21/2023 10:57 AM [facility] POA 05/25/2023 * DNR [facility] Arrest (DNR-CCA) [place] (Latest Code Status on File) Date Activated Date Inactivated Comments 09/04/2021 7:50 PM 09/10/2021 4:40 PM * Full Code Date Activated Date Inactivated Comments 09/04/2021 4:33 PM 09/04/2021 7:50 PM * Full Code Date Activated Date Inactivated Comments 05/11/2021 8:33 PM 05/12/2021 4:57 PM * Full Code Date Activated Date Inactivated Comments 08/04/2020 1:30 PM 08/07/2020 4:50 PM Care Teams Ethylbenzene Oxidizer Relationship Specialty Start Date End Date Alberto Leonardo MD [address] [place] [address], [address] [place], [place] [id number] PCP - General Pediatrics 04/13/23
--- OUTSIDE RECORDS SUMMARY | 2024-10-15 11:27 | XMS_ITS | Encounter Summary ---
Author Organization [facility] Sys tem Address [id number] [address] [place] [address] Care Team Providers Care Promotions Executive Producer Name Role Phone Alberto Leonardo MD Primary Care Provider [phone] Encounter Details Date Type Department Care Team (Late st Contact Info) Description 03/31/2022 Orders Only [facility] Internal Medicine/Pediatrics [address] [place] [phone] External, Scanning Provider Social History Tobacco Use [...] often do you attend chur ch or confucianist services? More than 4 times per year 09/04/2021 Do you belong to any clubs o r organizations such as latter-day groups, unions, fraternal or athletic groups, or [...] Answer Date Recorded Total Score 1 12/14/2021 [facility] - Occupational Stress [...] Recorded Do you need help finding a [employer] [facility] career center and/or a training program? No [...] Cardiology [address] [place] [address] Rose Marie Goode MD [address] [place] [address] documented as of this encounter Goals Goal Patient Goal Type Associated Problems Recent Progress Patient-Stated? Author SNF General Yes Flora Ornelas LSW Note: Evaluation of progress towards goal: DC to SNF or home with HHC (pending clinical course). Pt symptoms improved, goal is home; declining HHC. documented as of this encounter Procedures Procedure Name Priority Date/Time Associated Diagnosis Comments MULTIPLE LABS Routine 03/31/2022 documented in this encounter Results * Multiple labs (03/31/2022) 03/31/2022 us Scanning Provider External [place] [facility] Final Result MANUALLY TRANSCRIBED RESULTS documented in this encounter Visit Diagnoses Not on filedocumented in this encounter Additional Health Concerns Infection Onset Date Last Indicated Resolved Time COVID-19 Rule-Out 03/11/2023 03/11/2023 03/11/2023 3:46 PM EST COVID-19 Rule-Out 03/11/2023 03/11/2023 03/11/2023 5:20 PM EST Assessment Noted Time PHQ-9 Depression Total Score: 1 12/15/19 22 1:00 PM EST documented as of this encounter Care Teams Promotions Executive Producer Relationship Specialty Start Date End Date Alberto Leonardo MD [address] [place] [address], [address] [place] [address] PCP - General Pediatrics 04/13/23 documented as of this encounter
--- OUTSIDE RECORDS SUMMARY | 2024-10-15 11:27 | XMS_ITS | Encounter Summary ---
Author Organization [facility] Sys tem Address [id number] [address] [place] [address] Care Team Providers Care Director Of Land Acquisition Name Role Phone Alberto Leonardo MD Primary Care Provider [phone] Encounter Details Date Type Department Care Team (Late st Contact Info) Description 09/22/2020 Orders Only [facility] Internal Medicine/Pediatrics [address] [facility] [address] [place] [phone] External, Scanning Provider Social History Tobacco Use [...] have Coronavirus / COVID-19? No / Unsure 09/09/2020 10:31 AM EDT documented as of this encounter Plan of Treatment Upcoming Encounters Date Type Department Care Team (Late st Contact Info) Description 10/29/2024 11:30 AM EDT Office Visit [facility] Cardiology [address] [place] [address] Rose Marie Goode MD [address] [place] [address] documented as of this encounter Procedures Procedure Name Priority Date/Time Associated Diagnosis Comments HOME SLEEP STUDY Routine 09/10/2020 documented in this encounter Results * Home sleep study (09/10/2020) 09/10/2020 Narrative MANUALLY TRANSCRIBED RESULTS - 09/10/2020 Ordering physician: Antoine Pena MD us Scanning Provider External SLEEP [facility] ORDERABL ES Final Result MANUALLY TRANSCRIBED RESULTS documented in [...] documented as of this encounter Care Teams Director Of Land Acquisition Relationship Specialty Start Date End Date Alberto Leonardo MD [address] [place] [address], [address] [place] [phone] PCP - General Pediatrics 04/13/23 documented as of this encounter
--- OUTSIDE RECORDS SUMMARY | 2024-10-15 11:27 | XMS_ITS | Encounter Summary ---
Author Organization [email or web address] Sys tem Address [id number] [address] [place] [address] Care Team Providers Care Chaplain Name Role Phone Alberto Leonardo MD Primary Care Provider [phone] Reason for Visit * Reason Comments Med Refill Encounter Details Date Type Department Care Team (Late st Contact Info) Description 01/27/2022 Refill [facility] Internal Medicine/Pediatrics [address] [place] [address] 1 [place] [phone] Alberto Leonardo MD [address] [place] [address], [address] [place] [address] Chronic sinusitis, unspecified location Social [...] any clubs o r organizations such as jehovah's witness groups, unions, fraternal or athletic groups, or [...] Answer Date Recorded Total Score 1 12/14/2021 [facility] - Occupational [...] Recorded Do you need help finding a [facility] career [facility] and/or a training [...] Telephone Encounter - Jami Griffin CMA - 01/27/2022 5:56 PM EST Patient needs to contact provider for a refill documented in this encounter Plan of Treatment Upcoming Encounters Date Type Department Care Team (Late st Contact Info) Description 10/29/2024 11:30 AM EDT Office Visit [facility] Cardiology [address] [place] [address] Rose Marie Goode MD [address] [place] [address] documented as of this encounter Goals Goal [...] Time PHQ-9 Depression Total Score: 1 12/15/19 1:00 PM EST documented as of this encounter Care Teams Chaplain Relationship Specialty Start Date End Date Alberto Leonardo MD [address] [place] [address], [address] [place], [place] [id number] PCP - General Pediatrics 04/13/23 documented as of this encounter
--- OUTSIDE RECORDS SUMMARY | 2024-10-15 11:27 | XMS_ITS | Clinical Summary ---
Author Organization [facility] Address [address] [place] [address] Phone Care Team Providers Care Access Rn Name Role Phone Alberto Leonardo MD Primary Care Provider + Allergies Active Allergy Reactions Criticality Noted Date Comments Other Hives,Other,Headache Medium 09/29/2022 Statins: confusion, visual disturbance, facial drouping Sulfa (Sulfonamide Antibiotics) Hives High 09/29/2022 Medications albuterol 90 mcg/actuation inhaler Inhale 1-2 puffs. EVERY 4-6 HOURS NEEDED AND DIRECTED. Active citalopram (CeleXA) 20 mg tablet Take 1 tablet (20 mg) by mouth once daily. Active fluticasone (Flonase) 50 mcg/actuation nasal spray Administer into affected nostril(s) if needed. Active tiotropium (Spiriva with HandiHaler) [address] into inhaler and inhale. Use as directed Active famotidine (Pepcid) 20 mg tablet Take 1 tablet (20 mg) by mouth once daily at bedtime. Active lisinopril 5 mg tabletIndications: Essential hypertension Take 1 tablet by mouth once daily 90 tablet 3 4 Active Eliquis 5 mg tabletIndications: Paroxysmal atrial fibrillation (Multi) Take 1 tablet by mouth twice daily 180 tablet 3 4 Active pravastatin (Pravachol) 20 mg tabletIndications: Bilateral carotid artery stenosis,Hyperlipi demia, unspecified hyperlipidemia type Take 1 tablet (20 mg) by mouth once daily. 100 tablet 2 4 Active carvedilol (Coreg) 3.125 mg tabletIndications: Essential hypertension Take 1 tablet by mouth twice daily 180 tablet 3 Active amiodarone (Pacerone) 200 mg tabletIndications: Paroxysmal atrial fibrillation (Multi) Take 1 tablet (200 mg) by mouth 3 times a day. Three times daily for one week then go to once daily after. 270 tablet 3 4 025 Active Active Problems Problem Noted Date Diagnosed Date Persistent atrial fibrillation (Multi) High risk medication use 01/10/2024 BMI 32.0-32.9,adult 01/03/2024 Asthma 09/29/2022 Sleep apnea 09/29/2022 Bilateral carotid artery stenosis 09/29/2022 Nonischemic cardiomyopathy (Multi) 09/29/2022 Essential hypertension 09/29/2022 Hyperlipidemia 09/29/2022 Ischemic colitis (Multi) 09/29/2022 Left bundle-branch block 09/29/2022 Palpitation 09/29/2022 Pulmonary embolism 09/29/2022 Shortness of breath 09/29/2022 Ventricular ectopic beat 09/29/2022 Never smoked tobacco 09/29/2022 Resolved Problems Problem Noted Date Diagnosed Date Resolved Date Paroxysmal atrial fibrillation (Multi) 09/29/2022 01/10/2024 Class 2 obesity with body ma ss index (BMI) of 35.0 to 35.9 in adult 09/29/2022 01/03/2024 Immunizations Immunization Administration Dates Next Due Flu vaccine (IIV4), preserva tive free *Check age/dose* 11/21/2019 Influenza, Unspecified 11/25/2021,2020,11/06/2018,11/01,11/06/2014,11/06/2008 Influenza, seasonal, injectable 11/12/2014 Moderna COVID-19 vaccine, bi valent, blue cap/smith label *Check age/dose* 11/25/2021 Moderna SARS-CoV-2 Vaccination 2,12/29/2020,03/26/2020,02/27 Pneumococcal conjugate vacci ne, 13-valent (PREVNAR 13) 11/25/2021,11/12/2019,11/18/2014 Pneumococcal polysaccharide vaccine, 23-valent, age 2 years and older (PNEUMOVAX 23) 11/06/2014,02/06/2013,02/06/2009,11/06 Zoster, Unspecified 11/12/2019 Zoster, live 02/06/2013 Family History Medical History Relation Name Comments arteriosclerotic cardiovascular disease Father Stroke Mother Relation Name Status Comments Father Mother Social History Tobacco Use Types Packs/Day Years Used Date Smoking Tobacco: Never Smokeless Tobacco: Never Tobacco Cessation:Counseling Given: Not Answered Alcohol Use Standard Drinks/Week Comments Never 0 (1 standard drink = 0.6 oz pur e alcohol) PHQ-2 Answer Date Recorded Patient Health Questionnaire-2 Score 0 11/08/2022 Comments Unknown Sex and Gender Information Value Date Recorded Sex Assigned at Not on file Legal Sex Female 7:40 PM EST Gender Identity Not on file Sexual Orientation Not on file Last Filed Vital Signs Vital Sign Reading Time Taken Comments Blood Pressure 126/82 01/10/2024 3:00 PM EST Pulse 88 01/10/2024 2:22 PM EST Temperature - - Respiratory Rate - - Oxygen Saturation - - Inhaled Oxygen Concentration - - Weight 93 kg (205 lb) 01/10/2024 2:22 PM EST Height 167.6 cm (5' 6 ) 01/10/2024 2:22 PM EST Body Mass Index 33.09 01/10/2024 2:22 PM EST Plan of Treatment Health Maintenance Due Date Last Done Comments Creatinine Level 1940 Lipid Panel 1940 Medicare Annual Wellness Visit (AWV) 1940 Potassium Level 1940 Diabetes Screening 02/04/1958 Bone Density Scan 02/04/2005 Zoster Vaccines (3 of 3) 02/07/2024 024, 11/12/2019, 02/06/2013 TSH Level 03/31/2024 03/31/2023 Echocardiogram 08/15/2024 08/16/2023, 09/06, 07/25/2019, Additional history exists COVID-19 Vaccine ( season) 2024 11/06/2023, 11/02/2022, 11/25/2021, Additional history exists Influenza Vaccine (#1) 2024 4, 11/02/2022, 11/25/2021, Additional history exists DTaP/Tdap/Td Vaccines (2 - Td or Tdap) 08/06/2033 08/07/2023 RSV High Risk: (Elderly (60+) or Population) Completed 11/25/2022 Pneumococcal Vaccine Completed 12/13/2023, 11/25/2021, 11/12/2019, Additional history exists HIB Vaccines Aged Out No longer eligi ble based on patient's age to complete this topic HPV Vaccines Aged Out No longer eligi ble based on patient's age to complete this topic Hepatitis A Vaccines Aged Out No long er eligible based on patient's age to complete this topic Hepatitis B Vaccines Aged Out No long er eligible based on patient's age to complete this topic IPV Vaccines Aged Out No longer eligi ble based on patient's age to complete this topic Meningococcal Vaccine Aged Out No leo bairon eligible based on patient's age to complete this topic Rotavirus Vaccines Aged Out No longer eligible based on patient's age to complete this topic Procedures Procedure Name Priority Date/Time Associated Diagnosis Comments TRANSTHORACIC ECHO (TTE) COMPLETE Routine 08/16/2023 1:22 PM EDT Dilated cardiomyopathy (Multi) from Last 3 Months or Most Recently Relevant to Health Maintenance Results * TRANSTHORACIC ECHO (TTE) COMPLETE (08/16/2023 1:22 PM EDT) AV mn grad 8.0 mmHg SYNGO AV pk julian 2.00 m/s SYNGO LV Biplane EF 54 % SYNGO LVOT diam 2.40 cm SYNGO MV E/A ratio 0.43 SYNGO MV avg E/e' ratio 12.20 SYNGO LV EF 40 % SYNGO RVSP 30.7 mmHg SYNGO LVIDd 4.68 cm SYNGO Aortic Valve Area by Continuity of Peak Velocity 2.00 cm2 SYNGO AV pk grad 16.0 mmHg SYNGO Aortic Valve Area by Continuity of VTI 2.07 cm2 SYNGO LV A4C EF 43.3 SYNGO 08/16/2023 12:5 0 PM EDT Narrative SYNGO - 08/16/2023 4:51 PM EDT [facility] [address] [facility], [address], [place] [address] TRANSTHORACIC ECHOCARDIOGRAM REPORT Patient Name: RAUL MCPHERSON Reading Physician: [id number] Mala Pena MD Study Date: 08/16/2023 Ordering Provider: [id number] MALA PENA MRN/PID: [id number] Fellow: Nurse: Date of /Age: 12 1940 / 83 years Drug Abuse Resistance Education Officer: Nicole Kitchen RDCS, RVT Gender: F Additional Staff: Height: 167.64 cm Admit Date: Weight: 97.07 kg Admission Status: BSA / BMI: 2.06 m2 / 34.54 kg/m2 Department Location: [facility] Blood Pressure: 128 /84 mmHg Study Type: TRANSTHORACIC ECHO (TTE) COMPLETE Diagnosis/ICD: Dilated cardiomyopathy-I42.0 Indication: Paroxysmal Atrial Fibrillation, Abnormal EKG-LBBB, HTN, Hyperlipidemia, Palpitations, Nonischemic Cardiomyopathy, Bilateral Carotid Stenosis, Dizziness, Remote Pulmonary Emboli, Obesity, PRISCILLA CPT Codes: Echo Complete w Full Doppler-[id number] Study Detail: The following Echo studies were performed: 2D, M-Mode, Doppler and color flow. PHYSICIAN INTERPRETATION: Left Ventricle: Left ventricular ejection fraction is moderately decreased, by visual estimate at 40%. There are no regional wall motion abnormalities. The left ventricular cavity size is normal. Spectral Doppler shows a pseudonormal pattern of left ventricular diastolic filling. Mild LVH with septal motion consistent with conduction abnormalities. Left Atrium: The left atrium is normal in size. Right Ventricle: The right ventricle is normal in size. There is normal right ventricular global systolic function. Right Atrium: The right atrium is normal in size. Aortic Valve: The aortic valve appears structurally normal. There is minimal aortic valve cusp calcification. The aortic valve dimensionless index is 0.46. There is mild aortic valve regurgitation. The peak instantaneous gradient of the aortic valve is 16.0 mmHg. The mean gradient of the aortic valve is 8.0 mmHg. Mitral Valve: The mitral valve is mild to moderately thickened. There is moderate mitral valve regurgitation. Tricuspid Valve: The tricuspid valve is structurally normal. There is mild tricuspid regurgitation. The Doppler estimated RVSP is slightly elevated at 30.7 mmHg. Pulmonic Valve: The pulmonic valve is structurally normal. There is no indication of pulmonic valve regurgitation. Pericardium: There is no pericardial effusion noted. Aorta: The aortic root is normal. CONCLUSIONS: 1. Left ventricular ejection fraction is moderately decreased, by visual estimate at 40%. 2. Spectral Doppler shows a pseudonormal pattern of left ventricular diastolic filling. 3. Mild LVH with septal motion consistent with conduction abnormalities. 4. There is normal right ventricular global systolic function. 5. Moderate mitral valve regurgitation. 6. Mild tricuspid regurgitation is visualized. 7. Slightly elevated RVSP. 8. Mild aortic valve regurgitation. 9. When compared to previous study LVEF appears to be lower. QUANTITATIVE DATA SUMMARY: 2D MEASUREMENTS: Normal Ranges: Ao Root d: 3.30 cm (2.0-3.7cm) LAs: 3.80 cm (2.7-4.0cm) RVIDd: 2.75 cm (0.9-3.6cm) IVSd: 1.91 cm (0.6-1.1cm) LVPWd: 1.18 cm (0.6-1.1cm) LVIDd: 4.68 cm (3.9-5.9cm) LVIDs: 4.20 cm LV Mass Index: 148.5 g/m2 LV % FS 10.3 % LV SYSTOLIC FUNCTION BY 2D PLANIMETRY (MOD): Normal Ranges: EF-A4C View: 43 % (>=55%) EF-A2C View: 63 % EF-Biplane: 54 % EF-Visual: 40 % LV EF Reported: 40 % LV DIASTOLIC FUNCTION: Normal Ranges: MV Peak E: 0.52 m/s (0.7-1.2 m/s) MV Peak A: 1.22 m/s (0.42-0.7 m/s) E/A Ratio: 0.43 (1.0-2.2) MV e' 0.040 m/s (>8.0) MV lateral e' 0.04 m/s MV medial e' 0.04 m/s E/e' Ratio: 12.93 (<8.0) MITRAL VALVE: Normal Ranges: MV Vmax: 1.31 m/s (<=1.3m/s) MV peak P.9 mmHg (<5mmHg) MV mean P.0 mmHg (<48mmHg) MITRAL INSUFFICIENCY: Normal Ranges: MR Vmax: 469.00 cm/s dP/dt: 535 mmHg/s (>1200mmHg/sec) AORTIC VALVE: Normal Ranges: AoV Vmax: 2.00 m/s (<=1.7m/s) AoV Peak P.0 mmHg (<20mmHg) AoV Mean P.0 mmHg (1.7-11.5mmHg) LVOT Max Julian: 0.89 m/s (<=1.1m/s) AoV VTI: 44.10 cm (18-25cm) LVOT VTI: 20.20 cm LVOT Diameter: 2.40 cm (1.8-2.4cm) AoV Area, VTI: 2.07 cm2 (2.5-5.5cm2) AoV Area,Vmax: 2.00 cm2 (2.5-4.5cm2) AoV Dimensionless Index: 0.46 AORTIC INSUFFICIENCY: AI Vmax: 3.14 m/s AI Half-time: 299 msec AI Decel Rate: 307.00 cm/s2 TRICUSPID VALVE/RVSP: Normal Ranges: Peak TR Velocity: 2.63 m/s RV Syst Pressure: 30.7 mmHg (< 30mmHg) PULMONIC VALVE: Normal Ranges: PV Max Julian: 0.6 m/s (0.6-0.9m/s) PV Max P.2 mmHg PIEDV: 1.95 m/s PADP: 18.2 mmHg [id number] Mala Pena MD Electronically signed on 08/16/2023 at 4:51:01 PM Final Procedure Note Mala Pnea MD - 08/16/[address], [address] [facility], [place] [address] TRANSTHORACIC ECHOCARDIOGRAM REPORT Patient Name: RAUL WAITEFELLOW Reading Physician: Deja Simpson Study Date: 08/16/2023 Ordering Provider: DEJA PENA MRN/PID: [id number] Fellow: Nurse: Date of /Age: 12 1940 / 83 years Drug Abuse Resistance Education Officer: Shari GERONIMO RVT Gender: F Additional Staff: Height: 167.64 cm Admit Date: Weight: 97.07 kg Admission Status: BSA / BMI: 2.06 m2 / 34.54 kg/m2 Department Location: [facility] Blood Pressure: 128 /84 mmHg Study Type: TRANSTHORACIC ECHO (TTE) COMPLETE Diagnosis/ICD: Dilated cardiomyopathy-I42.0 Indication: Paroxysmal Atrial Fibrillation, Abnormal EKG-LBBB, HTN, Hyperlipidemia, Palpitations, Nonischemic Cardiomyopathy, Bilateral Carotid Stenosis, Dizziness, Remote PulmonaryEmboli, Obesity, PRISCILLA CPT Codes: Echo Complete w Full Doppler-[id number] Study Detail: The following Echo studies were performed: 2D, M-Mode,Doppler and color flow. PHYSICIAN INTERPRETATION: Left Ventricle: Left ventricular ejection fraction is moderatelydecreased, by visual estimate at 40%. There are no regional wall motionabnormalities. The left ventricular cavity size is normal. SpectralDoppler shows a pseudonormal pattern of left ventricular diastolicfilling. Mild LVH with septal motion consistent with conductionabnormalities. Left Atrium: The left atrium is normal in size. Right Ventricle: The right ventricle is normal in size. There is normalright ventricular global systolic function. Right Atrium: The right atrium is normal in size. Aortic Valve: The aortic valve appears structurally normal. There isminimal aortic valve cusp calcification. The aortic valve dimensionlessindex is 0.46. There is mild aortic valve regurgitation. The peakinstantaneous gradient of the aortic valve is 16.0 mmHg. The mean gradientof the aortic valve is 8.0 mmHg. Mitral Valve: The mitral valve is mild to moderately thickened. There ismoderate mitral valve regurgitation. Tricuspid Valve: The tricuspid valve is structurally normal. There is mildtricuspid regurgitation. The Doppler estimated RVSP is slightly elevatedat 30.7 mmHg. Pulmonic Valve: The pulmonic valve is structurally normal. There is noindication of pulmonic valve regurgitation. Pericardium: There is no pericardial effusion noted. Aorta: The aortic root is normal. CONCLUSIONS: 1. Left ventricular ejection fraction is moderately decreased, by visualestimate at 40%. 2. Spectral Doppler shows a pseudonormal pattern of left ventriculardiastolic filling. 3. Mild LVH with septal motion consistent with conductionabnormalities. 4. There is normal right ventricular global systolic function. 5. Moderate mitral valve regurgitation. 6. Mild tricuspid regurgitation is visualized. 7. Slightly elevated RVSP. 8. Mild aortic valve regurgitation. 9. When compared to previous study LVEF appears to be lower. QUANTITATIVE DATA SUMMARY: 2D MEASUREMENTS: Normal Ranges: Ao Root d: 3.30 cm (2.0-3.7cm) LAs: 3.80 cm (2.7-4.0cm) RVIDd: 2.75 cm (0.9-3.6cm) IVSd: 1.91 cm (0.6-1.1cm) LVPWd: 1.18 cm (0.6-1.1cm) LVIDd: 4.68 cm (3.9-5.9cm) LVIDs: 4.20 cm LV Mass Index: 148.5 g/m2 LV % FS 10.3 % LV SYSTOLIC FUNCTION BY 2D PLANIMETRY (MOD): Normal Ranges: EF-A4C View: 43 % (>=55%) EF-A2C View: 63 % EF-Biplane: 54 % EF-Visual: 40 % LV EF Reported: 40 % LV DIASTOLIC FUNCTION: Normal Ranges: MV Peak E: 0.52 m/s (0.7-1.2 m/s) MV Peak A: 1.22 m/s (0.42-0.7 m/s) E/A Ratio: 0.43 (1.0-2.2) MV e' 0.040 m/s (>8.0) MV lateral e' 0.04 m/s MV medial e' 0.04 m/s E/e' Ratio: 12.93 (<8.0) MITRAL VALVE: Normal Ranges: MV Vmax: 1.31 m/s (<=1.3m/s) MV peak P.9 mmHg (<5mmHg) MV mean P.0 mmHg (<48mmHg) MITRAL INSUFFICIENCY: Normal Ranges: MR Vmax: 469.00 cm/s dP/dt: 535 mmHg/s (>1200mmHg/sec) AORTIC VALVE: Normal Ranges: AoV Vmax: 2.00 m/s (<=1.7m/s) AoV Peak P.0 mmHg (<20mmHg) AoV Mean P.0 mmHg (1.7-11.5mmHg) LVOT Max Julian: 0.89 m/s (<=1.1m/s) AoV VTI: 44.10 cm (18-25cm) LVOT VTI: 20.20 cm LVOT Diameter: 2.40 cm (1.8-2.4cm) AoV Area, VTI: 2.07 cm2 (2.5-5.5cm2) AoV Area,Vmax: 2.00 cm2 (2.5-4.5cm2) AoV Dimensionless Index: 0.46 AORTIC INSUFFICIENCY: AI Vmax: 3.14 m/s AI Half-time: 299 msec AI Decel Rate: 307.00 cm/s2 TRICUSPID VALVE/RVSP: Normal Ranges: Peak TR Velocity: 2.63 m/s RV Syst Pressure: 30.7 mmHg (< 30mmHg) PULMONIC VALVE: Normal Ranges: PV Max Julian: 0.6 m/s (0.6-0.9m/s) PV Max P.2 mmHg PIEDV: 1.95 m/s PADP: 18.2 mmHg [id number] Mala Pena MD Electronically signed on 08/16/2023 at 4:51:01 PM Final Mala Pena MD CV ECHO PROCEDURES Final R esult SYNGO from Last 3 Months or Most Recently Relevant to Health Maintenance Insurance [facility] MEDICARE [employer] MEDICARE Care Teams Access Rn Relationship Specialty Start Date End Date Alberto Leonardo MD PCP - General 06/28/18
--- OUTSIDE RECORDS SUMMARY | 2024-10-15 11:27 | XMS_ITS | Encounter Summary ---
Author Organization [employer] [facility] [employer] Address [id number] [address] [place] [address] Care Team Providers Care Roasterman Name Role Phone Alberto Leonardo MD Primary Care Provider [phone] Reason for Visit * Reason Onset Date Comments Med Refill 10/08/2024 Encounter Details Date Type Department Care Team (Late st Contact Info) Description 10/08/2024 Refill [facility] [address] [place] [phone] Olga Horowitz, TETO Med Refill Social History [...] often do you attend chur ch or moravian services? More than 4 times per year 09/04/2021 Do you belong to any clubs o r organizations such as mu-ism groups, unions, fraternal or athletic groups, or [...] Answer Date Recorded Total Score 6 01/25/2024 [facility] - Occupational Stress Questionnaire Answer Date [...] Cardiology [address] [place] [address] Rose Marie Goode MD [address] [place] [address] documented as of this encounter Goals Goal [...] documented as of this encounter Care Teams Roasterman Relationship Specialty Start Date End Date Alberto Leonardo MD [address] [place] [address], [address] [place], [place] [phone] PCP - General Pediatrics 04/13/23 documented as of this encounter
--- OUTSIDE RECORDS SUMMARY | 2024-10-15 11:27 | XMS_ITS | Encounter Summary ---
Author Organization [facility] Address [address] [place] [address] Phone Care Team Providers Care Apartment Maintenance Technician Name Role Phone Alberto Leonardo MD Primary Care Provider + Encounter Details Date Type Department Care Team (Late st Contact Info) Description 03/31/2022 Orders Only [facility] [address] [place] [address] Conversion, Onbase Social History Tobacco Use Types [...] r Schedule OUTSIDE LAB SCAN Lab Ordered: 03/31/2022 documented as of this encounter Visit Diagnoses Not on filedocumented in this encounter Care Teams Apartment Maintenance Technician Relationship Specialty Start Date End Date Alberto Leonardo MD PCP - General 06/28/18 documented as of this encounter
--- OUTSIDE RECORDS SUMMARY | 2024-10-15 11:27 | XMS_ITS | Encounter Summary ---
[facility] Address [id number] [place] [address] Care Team Providers Care Tile Mason Name Role Phone Alberto Leonardo MD Primary Care Provider [phone] Encounter Details Date Type Department Care Team (Late st Contact Info) Description 01/08/2024 Telephone [facility] Internal Medicine/Pediatrics [address] [place] [address] [address] [place] [address] Alberto Leonardo MD [address] [place] [address], [address] [place] [address] Social History Tobacco Use Types [...] often do you attend chur ch or church services? More than 4 times per year 09/04/2021 Do you belong to any clubs o r organizations such as zoroastrianism groups, unions, fraternal or athletic groups, or [...] Answer Date Recorded Total Score 4 01/18/2023 [facility] - Occupational Stress Questionnaire Answer Date [...] Recorded Do you need help finding a [facility] career [facility] and/or a training [...] * Telephone Encounter - Maren Kohler - 01/08/2024 8:20 AM EST Audrey called and said her lice is back and its very bad. She is wondering if you can call that medicine in again. Please advise * Telephone Encounter - Alberto Leonardo MD - 01/08/2024 8:20 AM EST I don't want to do that because I've never seen lice on her head and if they are present there are topical preparations that can be used. documented in this encounter Plan of Treatment Upcoming Encounters Date Type Department Care Team (Late st Contact Info) Description 10/29/2024 11:30 AM EDT Office Visit [facility] Cardiology [address] [place] [address] Rose Marie Goode MD [address] [place] [address] documented as of this encounter Goals Goal [...] Time PHQ-9 Depression Total Score: 4 01/19/20 9:00 AM EST documented as of this encounter Care Teams Tile Mason Relationship Specialty Start Date End Date Alberto Leonardo MD [address] [place] [address], [address] [place] [address] PCP - General Pediatrics 04/13/23 documented as of this encounter
--- OUTSIDE RECORDS SUMMARY | 2024-10-15 11:27 | XMS_ITS | Encounter Summary ---
Author Organization [employer] [employer] [facility] Address [id number] [address] [place] [address] Care Team Providers Care Baby Formula Worker Name Role Phone Alberto Leonardo MD Primary Care Provider [phone] Reason for Visit * Reason Comments Med Refill Encounter Details Date Type Department Care Team (Late st Contact Info) Description 02/27/2020 Refill [facility] Internal Medicine/Pediatrics [address] [place] [phone] Alberto Leonardo MD [address] [place] [address], [address] [place] [address] Social History Tobacco Use Types Packs/Day Years Used Date Smoking Tobacco: Never Assessed Childcare Answer Date Recorded Childcare Unknown 07/18/2018 [...] have Coronavirus / COVID-19? No / Unsure 02/24/2020 2:05 PM EST documented as of this encounter Miscellaneous Notes * Telephone Encounter - Jami Griffin CMA - 02/27/2020 5:14 PM EST Pt has refills until 05-24-2020 documented in this encounter Plan of Treatment Upcoming Encounters Date Type Department Care Team (Late st Contact Info) Description 10/29/2024 11:30 AM EDT Office Visit [facility] [address] [place] [phone] Rose Marie Goode MD [address] [place] [address] documented as of this encounter Visit Diagnoses Not on filedocumented in this encounter Additional Health Concerns Infection Onset Date Last Indicated Resolved Time Enteric Rule-Out 08/03/2020 08/04/2020 08/04/2020 12:49 PM EDT COVID-19 Rule-Out 05/11/2021 05/11/2021 05/11/2021 4:10 PM EDT COVID-19 Positive 05/11/2021 05/11/2021 06/01/2021 11:12 PM EDT COVID-19 Rule-Out 03/11/2023 03/11/2023 03/11/2023 3:46 PM EST COVID-19 Rule-Out 03/11/2023 03/11/2023 03/11/2023 5:20 PM EST documented as of this encounter Care Teams Baby Formula Worker Relationship Specialty Start Date End Date Alberto Leonardo MD [address] [place] [address], [address] [place], [place] [id number] PCP - General Pediatrics 04/13/23 documented as of this encounter
--- OUTSIDE RECORDS SUMMARY | 2024-10-15 11:28 | XMS_ITS | Encounter Summary ---
Author Organization [facility] Address [address] [place] [address] Care Team Providers Care Top Bottom Attaching Machine Operator Name Role Phone Alberto Lugo Primary Care Provider [phone] Source Comments In the event this information is protected by the Federal Confidentiality of Alcohol and Drug AbusePatient Records regulations: The Federal rules restrict any use of the information to criminally investigate or prosecute any alcohol or drug abuse patient.[facility] Reason for Visit * Reason Comments Appointment Encounter Details Date Type Department Care Team (Late st Contact Info) Description 08/20/2024 Telephone [address]rology [address] [place] [address] [place] [address] [place], [place] [phone] Appointment Social History Tobacco Use Types Packs/Day Years Used Date Smoking Tobacco: Never Smokeless Tobacco: Never Alcohol Use Standard Drinks/Week Comments Never 0 (1 standard drink = 0.6 oz pur e alcohol) PHQ-2 Answer Date Recorded PHQ-2 score 2 07/14/2024 Area Deprivation Index Answer Date Ric rded National Score (1-100), lower number is lower ri sk 92 07/17/2024 State Score (1-10), lower number is lower risk 9 07/17/2024 Data from: https://www.neighborhoodatlas.medicine.[facility].edu/. Last address used for calculation [address] 07/17/2024 Comments Unknown Sex and Gender Information Value Date Recorded Sex Assigned at Not on file Legal Sex Female 2:46 PM EDT Gender Identity Not on file Sexual Orientation Not on file documented as of this encounter Miscellaneous Notes * Telephone Encounter - Darling Encinas - 08/20/2024 9:36 AM EDT Keshia is calling Cesar Vitale DO today to request her Appointment Reminder for 10/09/[address] Jiménez be printed and mailed to her. Patient has been identified by name and birthdate. Duration of symptoms: N/A Person calling: self Call patient at: on cell [phone] (home) [phone] (cell) Was an appointment scheduled: No Closing statement: Results or non-symptom based questions: Thank you for calling [facility], your call will be returned within the next business day. Darling Encinas documented in this encounter Plan of Treatment Not on file documented as of this encounter Visit Diagnoses Not on filedocumented in this encounter Care Teams Top Bottom Attaching Machine Operator Relationship Specialty Start Date End Date Alberto Lugo [address] [place] [address] PCP - General 09/29/17 documented as of this encounter
--- OUTSIDE RECORDS SUMMARY | 2024-10-15 11:28 | XMS_ITS | Encounter Summary ---
Author Organization [facility] [facility] Address [id number] [address] [place] [address] Care Team Providers Care Change Of Address Clerk Name Role Phone Alberto Leonardo MD Primary Care Provider [phone] Encounter Details Date Type Department Care Team (Latest Contact Info) Description 10/08/2024 Travel Social History Tobacco Use Types Packs/Day Years [...] often do you attend chur ch or christianity services? More than 4 times per year 09/04/2021 Do you belong to any clubs o r organizations such as buddhist groups, unions, fraternal or athletic groups, or [...] Answer Date Recorded Total Score 6 01/25/2024 [facility] - Occupational Stress Questionnaire Answer Date [...] Recorded Do you need help finding a [facility] career center and/or a training program? [...] Cardiology [address] [place] [phone] Rose Marie Goode MD [address] [place] [address] documented as of this encounter Goals Goal [...] documented as of this encounter Care Teams Change Of Address Clerk Relationship Specialty Start Date End Date Alberto Leonardo MD [facility], [address] [place], [place] [phone] PCP - General Pediatrics 04/13/23 documented as of this encounter
--- OUTSIDE RECORDS SUMMARY | 2024-10-15 11:28 | XMS_ITS | Encounter Summary ---
Author Organization [facility] Address [address] [facility] [place] [address] Care Team Providers Care Sterilizer Machine Operator Name Role Phone Sandy Toribio Unavailable Alberto Leonardo MD Primary Care Provider [phone] Encounter Details Date Type Department Care Team (Late Contact Info) Description 10/15/2024 Bamboo flowsheet [facility] [place] [facility] [address] [facility] [address] [place] [phone] Jannette Arciniega MD [address] [facility] [address] [place], [place] [phone] Social History Tobacco Use Types Packs/Day Years [...] EDT Office Visit [facility] [place] [facility] [address] [facility] [address] [place] [phone] Jannette Arciniega MD [address] [facility] [address] [place], [place] [phone] documented as of this encounter Visit Diagnoses Not on filedocumented in this encounter Care Teams Sterilizer Machine Operator Relationship Specialty Start Date End Date Alberto Leonardo MD [address] [place] [address], [address] [place] [address] PCP - General Family Medicine 04/19/24 Sandy Toribio PA Physician Sewer Separation Designer Neurology 03/05/24 documented as of this encounter
--- OUTSIDE RECORDS SUMMARY | 2024-10-15 11:28 | XMS_ITS | Encounter Summary ---
Author Organization [facility] Address [id number] [address] [place] [address] Care Team Providers Care Data Integration Architect Name Role Phone Alberto Leonardo MD Primary Care Provider [phone] Encounter Details Date Type Department Care Team (Late st Contact Info) Description 08/05/2022 Orders Only [facility] Internal Medicine/Pediatrics [address] [place] [phone] External, Scanning Provider Social History Tobacco Use [...] Answer Date Recorded Total Score 1 12/14/2021 [facility] Occupat ional Health - Occupational Stress [...] Recorded Do you need help finding a [employer] [facility] career center and/or a training program? No [...] Cardiology [address] [place] [address] Rose Marie Goode MD [address] [place] [address] documented as of this encounter Goals Goal Patient Goal Type Associated Problems Recent Progress Patient-Stated? Author SNF General Yes Flora Ornelas LSW Note: Evaluation of progress towards goal: DC to SNF or home with HHC (pending clinical course). Pt symptoms improved, goal is home; declining HHC. documented as of this encounter Procedures Procedure Name Priority Date/Time Associated Diagnosis Comments CT ABDOMEN AND PELVIS W CONT Routine 08/05/2022 documented in this encounter Results * CT abdomen and pelvis with contrast (08/05/2022) Anatomical Region Laterality Modality Body, Abdomen, Body Covera N/A Compu lon Tomography 08/05/2022 us Scanning Provider External IMG CT ORDERABLES [...] documented as of this encounter Care Teams Data Integration Architect Relationship Specialty Start Date End Date Alberto Leonardo MD [address] [place] [address], [address] [place] [address] PCP - General Pediatrics 04/13/23 documented as of this encounter
--- OUTSIDE RECORDS SUMMARY | 2024-10-15 11:28 | XMS_ITS | Clinical Summary ---
Author Organization [facility] Address [address] [place] [id number] Care Team Providers Care Orthopedic Specialist Name Role Phone Alberto Lugo Primary Care Provider [phone] Allergies Active Allergy Reactions Criticality Noted Date Comments Sulfa (Sulfonamide Antibiotics) Swelling 07/07 Medications apixaban (ELIQUIS) 5 mg (74 tabs) Take 5 mg by mouth two times a day. 5 Active amiodarone (PACERONE) 200 mg tablet Take 200 mg by mouth once daily. 4 01/03/20 25 Active pravastatin (PRAVACHOL) 20 mg tablet Take 20 mg by mouth once daily. Active carvedilol (COREG) 3.125 mg tablet Take 3.125 mg by mouth two times a day. Active fluticasone (FLONASE) 50 mcg/actuation nasal spray Use 1 spray in each nostril once daily. 3 Active tiotropium bromide (SPIRIVA RESPIMAT) 2.5 mcg/actuation inhaler Inhale 2 puffs as instructed two times a day. 3 Active baclofen 5 mg tablet Take 0.5-1 tablets by mouth two times a day as needed (tension/tightn ess). 60 tablet 5 5 Active gabapentin (NEURONTIN) 300 mg capsuleIndicati ons:Disturbance of skin sensation,Neuro pathic pain,Abnormalit y of gait BID x 2 weeks, then 1 TID 90 capsule 5 5 02/13/[address] (CYMBALTA) 20 mg capsule Take 20 mg by mouth once daily. Active lisinopril (ZESTRIL) 20 mg tablet Take 20 mg by mouth every morning. Active Hospital, Clinic, or Other Facility Administered Medication Ordered Dose Route Frequency Start Date End Date Status bupivacaine (PF) 0.25 % (2.5 mg/mL) 6 mg injection (SENSORCAINE MPF) 6 mg PNB ONCE 10/09/2024 10/09/2024 Ended betamethasone acetate-betamethasone sodium phosphate 6 mg injection (CELESTONE) 6 mg OTH ONCE 10/09/2024 10/09/2024 End ed Active Problems Problem Noted Date Diagnosed Date Peripheral polyneuropathy 07/17/2024 Disturbance of skin sensation 07/17/2024 Neuropathic pain 07/17/2024 Abnormality of gait 07/17/2024 Nonintractable headache 07/17/2024 Occipital neuralgia of right side 07/17/2024 Cervicogenic headache 07/17/2024 Paroxysmal atrial fibrillation 07/17/2024 Obstructive sleep apnea (adult) (pediatric) 07/07 Chronic bilateral low back pain with left-sided sciatica 07/17/2024 Encounter for screening for metabolic disorder 0 07/17/2024 Encounters Date Type Department Care Team Description 10/09/2024 9:00 AM EDT Office Visit Neurology [address] [place] [address] Rochelle Jiménez MD Occipital neuralgia of right side 09/27/2024 Telephone Neurology [address] [place] [address] Cesar Vitale DO 09/17/2024 Travel 09/10/2024 Telephone Neurology [address] [place] [address] Rochelle Jiménez MD Patient Question 08/29/2024 Telephone Neurology [address] [place] [address] Cesar Vitale DO Outside MRI/CT images 08/20/2024 Telephone Neurology [address] [place] [address] Cesar Vitale DO Appointment 08/09/2024 Get Medical Advice Neurology [address] [place] [address] Cesar Vitale DO Tamar has not received prescription order for gabapentin 08/06/2024 4:00 PM EDT Office Visit Neurology [address] [place] [address] Cesar Vitale DO Nonintractable headache, unspecified chronicity pattern, unspecified headache type; Occipital neuralgia of right side; Cervicogenic headache; Disturbance of skin sensation; Neuropathic pain; Abnormality of gait 07/17/2024 9:30 AM EDT Office Visit Neurology [address] [place] [address] Alberto Hunt MD Disturbance of skin sensation (Primary Dx); Peripheral polyneuropathy; Neuropathic pain; Abnormality of gait; Nonintractable headache, unspecified chronicity pattern, unspecified headache type; Occipital neuralgia of right side; Cervicogenic headache; Paroxysmal atrial fibrillation (HCC); Obstructive sleep apnea (adult) (pediatric); Chronic bilateral low back pain with left-sided sciatica; Encounter for screening for metabolic disorder from Last 3 Months Social History Tobacco Use Types Packs/Day Years [...] is lower risk 9 07/17/2024 Data from: https://www.neighborhoodatlas.medicine.[facility].edu/. Last address used for calculation [address] [place] [address] 07/17/2024 Comments Unknown Sex and Gender Information Value Date Recorded Sex Assigned at Not on file Legal Sex Female 2:46 PM EDT Gender Identity Not on file Sexual Orientation Not on file Last Filed Vital Signs Vital Sign Reading Time Taken Comments Blood Pressure 167/91 10/09/2024 8:52 AM EDT Pulse 65 10/09/2024 8:52 AM EDT Temperature - - Respiratory Rate 16 07/17/2024 9:24 AM EDT Oxygen Saturation 99% 07/17/2024 9:24 AM EDT Inhaled Oxygen Concentration - - Weight 95.8 kg (211 lb 3.2 oz) 10/09/2024 8:52 A M EDT Height 167.6 cm (5' 6 ) 10/09/2024 8:52 AM EDT Body Mass Index 34.09 10/09/2024 8:52 AM EDT Plan of Treatment Health Maintenance Due Date Last Done Comments Anxiety Screening 02/04/1958 Depression Screening 02/04/1958 Bone Density Screening 02/04/2005 Advance Directive Discussion 02/07/2024 Medicare Advantage Annual We llness Visit 02/07/2024 Influenza Vaccine (#1) 2024 , 11/02/2022, 11/25/2021, Additional history exists Diabetes Screening 10/09/2027 10/08/2024, 0 08/06/2024, 07/17/2024, Additional history exists DTaP,Tdap,Td Vaccine (2 - Td or Tdap) 08/06/2033 08/07/2023 RSV Vaccine Completed 11/25/2022 Pneumococcal Vaccine: 50+ Completed 2023, 11/25/2021, 11/25/2021, Additional history exists Shingrix Vaccine Completed 04/08/2024, 07/2023, 01/17/2020, Additional history exists Procedures Procedure Name Priority Date/Time Associated Diagnosis Comments CHROMATIN ANTIBODY Routine 07/17/2024 11 :09 AM EDT Disturbance of skin sensation Neuropathic pain Abnormality of gait Nonintractable headache, unspecified chronicity pattern, unspecified headache type Occipital neuralgia of right side Cervicogenic headache RIBOSOMAL DISTRICT SALES COORDINATOR AB BLD Routine 07/17/2024 11:09 AM EDT Disturbance of skin sensation Neuropathic pain Abnormality of gait Nonintractable headache, unspecified chronicity pattern, unspecified headache type Occipital neuralgia of right side Cervicogenic headache SUNSHINE-1 AB Routine 07/17/2024 11:09 AM EDT Disturbance of skin sensation Neuropathic pain Abnormality of gait Nonintractable headache, unspecified chronicity pattern, unspecified headache type Occipital neuralgia of right side Cervicogenic headache SCLERODERMA IGG AB Routine 07/17/2024 11 :09 AM EDT Disturbance of skin sensation Neuropathic pain Abnormality of gait Nonintractable headache, unspecified chronicity pattern, unspecified headache type Occipital neuralgia of right side Cervicogenic headache ANTI-CENTROMERE AB Routine 07/17/2024 11 :09 AM EDT Disturbance of skin sensation Neuropathic pain Abnormality of gait Nonintractable headache, unspecified chronicity pattern, unspecified headache type Occipital neuralgia of right side Cervicogenic headache ANTI SSB BLD Routine 07/17/2024 11:09 AM EDT Disturbance of skin sensation Neuropathic pain Abnormality of gait Nonintractable headache, unspecified chronicity pattern, unspecified headache type Occipital neuralgia of right side Cervicogenic headache ANTI SSA BLD Routine 07/17/2024 11:09 AM EDT Disturbance of skin sensation Neuropathic pain Abnormality of gait Nonintractable headache, unspecified chronicity pattern, unspecified headache type Occipital neuralgia of right side Cervicogenic headache DISTRICT SALES COORDINATOR ANTIBODY BLOOD Routine 07/17/2024 11 :09 AM EDT Disturbance of skin sensation Neuropathic pain Abnormality of gait Nonintractable headache, unspecified chronicity pattern, unspecified headache type Occipital neuralgia of right side Cervicogenic headache BASS IGG AB Routine 07/17/2024 11:09 AM EDT Disturbance of skin sensation Neuropathic pain Abnormality of gait Nonintractable headache, unspecified chronicity pattern, unspecified headache type Occipital neuralgia of right side Cervicogenic headache COPPER BLOOD Routine 07/17/2024 11:09 AM EDT Disturbance of skin sensation Neuropathic pain Abnormality of gait Nonintractable headache, unspecified chronicity pattern, unspecified headache type Occipital neuralgia of right side Cervicogenic headache ZINC BLD Routine 07/17/2024 11:09 AM EDT Disturbance of skin sensation Neuropathic pain Abnormality of gait Nonintractable headache, unspecified chronicity pattern, unspecified headache type Occipital neuralgia of right side Cervicogenic headache VITAMIN E, SERUM OR PLASMA Routine 07/17/2024 11:09 AM EDT Disturbance of skin sensation Neuropathic pain Abnormality of gait Nonintractable headache, unspecified chronicity pattern, unspecified headache type Occipital neuralgia of right side Cervicogenic headache VITAMIN B6/PYRIDOXIN Routine 07/17/2024 11:09 AM EDT Disturbance of skin sensation Neuropathic pain Abnormality of gait Nonintractable headache, unspecified chronicity pattern, unspecified headache type Occipital neuralgia of right side Cervicogenic headache VITAMIN B12 BLOOD Routine 07/17/2024 11: 09 AM EDT Disturbance of skin sensation Neuropathic pain Abnormality of gait Nonintractable headache, unspecified chronicity pattern, unspecified headache type Occipital neuralgia of right side Cervicogenic headache VITAMIN B1 (THIAMINE), WHOLE BLOOD Routine 07/17/2024 11:09 AM EDT Disturbance of skin sensation Neuropathic pain Abnormality of gait Nonintractable headache, unspecified chronicity pattern, unspecified headache type Occipital neuralgia of right side Cervicogenic headache METHYLMALONIC ACID Routine 07/17/2024 11 :09 AM EDT Disturbance of skin sensation Neuropathic pain Abnormality of gait Nonintractable headache, unspecified chronicity pattern, unspecified headache type Occipital neuralgia of right side Cervicogenic headache KAPPA/CHOUDHARY,FREE,SER Routine 07/17/2024 1 1:09 AM EDT Disturbance of skin sensation Neuropathic pain Abnormality of gait Nonintractable headache, unspecified chronicity pattern, unspecified headache type Occipital neuralgia of right side Cervicogenic headache HEMOGLOBIN A1C Routine 07/17/2024 11:09 AM EDT Disturbance of skin sensation Neuropathic pain Abnormality of gait Nonintractable headache, unspecified chronicity pattern, unspecified headache type Occipital neuralgia of right side Cervicogenic headache IMMUNOFIXATION SCREEN, SERUM Routine 07/17/2024 11:09 AM EDT Disturbance of skin sensation Neuropathic pain Abnormality of gait Nonintractable headache, unspecified chronicity pattern, unspecified headache type Occipital neuralgia of right side Cervicogenic headache ANTI MIAN ID Routine 07/17/2024 11:09 AM EDT Disturbance of skin sensation Neuropathic pain Abnormality of gait Nonintractable headache, unspecified chronicity pattern, unspecified headache type Occipital neuralgia of right side Cervicogenic headache FOLATE SERUM Routine 07/17/2024 11:09 AM EDT Disturbance of skin sensation Neuropathic pain Abnormality of gait Nonintractable headache, unspecified chronicity pattern, unspecified headache type Occipital neuralgia of right side Cervicogenic headache from Last 3 Months Results * IMMUNOFIXATION SCREEN, SERUM (07/17/2024 11:09 AM EDT) [facility] MPA Result No M protein is identified. No M protein is identified. 07/18/2024 2:09 PM EDT [facility] Staff Review (MPA) Reviewed by Dr. Bailey Ayala MD 07/18/2024 2:09 PM EDT [facility] Blood BLOOD SPECIMEN / Unknown Venipuncture / Unknown 07/17/2024 11:09 AM EDT 07/17/2024 11:09 AM EDT us Alberto Hunt MD LABORATORY Final Result [facility] [address] [place] [address], * VITAMIN B1 (THIAMINE), WHOLE BLOOD (07/17/2024 11:09 AM EDT) [facility] Vitamin B1 (Thiamine diphosphate), Whole Blood 175.3 84.3 - 213.3 nmol/L 07/22/2024 8:01 AM EDT [facility] Comment: This assay measures the concentration of thiamine diphosphate (TDP), the primary active form of vitamin B1. Approximately 90 percent of vitamin B1 present in whole blood is TDP. Thiamine and thiamine monophosphate, which comprise the remaining 10 percent, are not measured. This test was developed, and its performance characteristics determined by the [facility] Department of Pathology and Laboratory Medicine. It has not been cleared or approved by the FDA. The [facility] Department of Pathology and Laboratory Medicine is regulated under CLIA as qualified to perform high- complexity testing. This test is used for clinical purposes. It should not be regarded as investigational or for research. Blood BLOOD SPECIMEN / Unknown Venipuncture / Unknown 07/17/2024 11:09 AM EDT 07/17/2024 11:09 AM EDT Alberto Hunt MD LABORATORY Final Result Performing Organization Address [facility] Co de Phone Number [facility] [address] [place] [address], [place] * CHROMATIN ANTIBODY (07/17/2024 11:09 AM EDT) CHROMATIN AB QUAL Negative Negative 07/18/2024 10:59 AM EDT [facility] Chromatin Antibody <0.2 <1.0 AI 07/18/2024 10:59 AM EDT [facility] Comment:Test Methodology: Mu ltiplex flow immunoassay. Blood BLOOD SPECIMEN / Unknown Venipuncture / Unknown 07/17/2024 11:09 AM EDT 07/17/2024 11:09 AM EDT Narrative [facility] - 07/18/2024 10:59 AM EDT Anti-chromatin antibody is used as an aid in diagnosis of systemic lupus erythematosus. Clinical correlation is required. Test Methodology: Multiplex flow immunoassay. Alberto Hunt MD LABORATORY Final Result Performing Organization Address [facility] Co de Phone Number [facility] [place] [address], [place] * (ABNORMAL) KAPPA/CHOUDHARY,FREE,SER (07/17/2024 11:09 AM EDT) [place] Free, Serum 19.7(H) 3.3 - 19.4 mg/L 07/17/2024 3:08 PM EDT [facility] Comment: Rarely, increased serum free light chains levels may not be detected or accurately quantified due to prozone phenomenon or in high viscosity samples using this immunoturbidimetric assay. Correlation with other laboratory results and clinical findings is recommended. The [place] Free Light Chain was performed using the Binding Site Optilite immunoturbidimetric method. Result obtained with different assay methods or kits cannot be used interchangeably. Lambda Free, Serum 17.6 5.7 - 26.3 mg/L 07/17/2024 3:08 PM EDT [facility] Comment: Rarely, increased serum free light chains levels may not be detected or accurately quantified due to prozone phenomenon or in high viscosity samples using this immunoturbidimetric assay. Correlation with other laboratory results and clinical findings is recommended. The Lambda Free Light Chain was performed using the Binding Site Optilite immunoturbidimetric method. Result obtained with different assay methods or kits cannot be used interchangeably. K/L Ratio, Serum 1.12 0.26 - 1.65 07/17/2024 3:08 PM EDT [facility] Blood BLOOD SPECIMEN / Unknown Venipuncture / Unknown 07/17/2024 11:09 AM EDT 07/17/2024 11:09 AM EDT Alberto Hunt MD LABORATORY Final Result [facility] [address] [place] [address], * RIBOSOMAL DISTRICT SALES COORDINATOR AB BLD (07/17/2024 11:09 AM EDT) Ribosomal DISTRICT SALES COORDINATOR Qualitative Negative Negative 07/18/2024 10:59 AM EDT [facility] Comment: Anti-Ribosomal RNA (Ribosomal P) antibody is used as an aid in diagnosis of systemic autoimmune diseases especially systemic lupus erythematosus and mixed connective tissue disease. Cross-reactivity with Anti-bass antibody is not uncommon. Clinical correlation is required. Test Methodology: Multiplex flow immunoassay. Ribosomal DISTRICT SALES COORDINATOR <0.2 <1.0 AI 07/18/2024 10:59 AM EDT [facility] Blood BLOOD SPECIMEN / Unknown Venipuncture / Unknown 07/17/2024 11:09 AM EDT 07/17/2024 11:09 AM EDT us Alberto Hunt MD LABORATORY Final Result Performing Organization Address [facility] de Phone Number [facility] [address] [place], [place] [id number], [place] * DISTRICT SALES COORDINATOR ANTIBODY BLOOD (07/17/2024 11:09 AM EDT) DISTRICT SALES COORDINATOR Antibody QUAL Negative Negative 07/18/2024 10:59 AM EDT [facility] DISTRICT SALES COORDINATOR Antibody <0.2 <1.0 AI 07/18/2024 10:59 AM EDT [facility] Blood BLOOD SPECIMEN / Unknown Venipuncture / Unknown 07/17/2024 11:09 AM EDT 07/17/2024 11:09 AM EDT Narrative [facility] - 07/18/2024 10:59 AM EDT Anti-DISTRICT SALES COORDINATOR antibody is used as an aid in diagnosis of systemic autoimmune diseases especially systemic lupus erythematosus and mixed connective tissue disease. Cross-reactivity with Anti-bass antibody is not uncommon. Clinical correlation is required. Test Methodology: Multiplex flow immunoassay. us Alberto Hunt MD LABORATORY Final Result Performing Organization Address [facility] de Phone Number [facility] [address] [place], [place] [id number], [place] * BASS IGG AB (07/17/2024 11:09 AM EDT) SM Antibody Qual Negative Negative 07/19/19 10:59 AM EDT [facility] Comment: Anti-Sm (Bass) antibody is used as an aid in diagnosis of systemic lupus erythematosus and its presence is associated with renal disease. A negative result cannot rule out systemic lupus erythematosus. Clinical correlation is required. Test Methodology: Multiplex flow immunoassay. SM Antibody <0.2 <1.0 AI 07/18/2024 10:59 AM EDT [facility] Blood BLOOD SPECIMEN / Unknown Venipuncture / Unknown 07/17/2024 11:09 AM EDT 07/17/2024 11:09 AM EDT Alberto Hunt MD LABORATORY Final Result [facility] [place] [id number], [place] * (ABNORMAL) ZINC BLD (07/17/2024 11:09 AM EDT) Zinc 56(L) 60 - 120 ug/dL 07/18/2024 1:08 PM EDT [facility] Comment:This test was develo ped, and its performance characteristics determined by the [facility] Department of Pathology and Laboratory Medicine. It has not been cleared or approved by the FDA. The [facility] Department of Pathology and Laboratory Medicine is regulated under CLIA as qualified to perform high- complexity testing. This test is used for clinical purposes. It should not be regarded as investigational or for research. Blood BLOOD SPECIMEN / Unknown Venipuncture / Unknown 07/17/2024 11:09 AM EDT 07/17/2024 11:09 AM EDT Alberto Hunt MD LABORATORY Final Result [facility] [place] [id number], [place] * VITAMIN E/TOCOPHEROL (07/17/2024 11:09 AM EDT) Vitamin E-alpha 11.0 6.0 - 23.0 mg/L 07/18/2024 3:34 PM EDT [facility] Vitamin E-gamma 1.2 0.3 - 3.2 mg/L 07/18/2024 3:34 PM EDT [facility] Comment:This test was develo ped, and its performance characteristics determined by the [facility] Department of Pathology and Laboratory Medicine. It has not been cleared or approved by the FDA. The [facility] Department of Pathology and Laboratory Medicine is regulated under CLIA as qualified to perform high- complexity testing. This test is used for clinical purposes. It should not be regarded as investigational or for research. Blood BLOOD SPECIMEN / Unknown Venipuncture / Unknown 07/17/2024 11:09 AM EDT 07/17/2024 11:09 AM EDT us Alberto Hunt MD LABORATORY Final Result Performing Organization Address [facility] de Phone Number [facility] [address] * VITAMIN B6/PYRIDOXIN (07/17/2024 11:09 AM EDT) Vitamin B6 36.8 20.0 - 125.0 nmol/L 07/20/2024 3:46 PM EDT [facility] Comment: INTERPRETIVE INFORMATION: Vitamin B6 (Pyridoxal 5-Phosphate) Pyridoxal 5'-phosphate measured in a specimen collected following an 8-hour or overnight fast accurately indicates vitamin B6 nutritional status. Non-fasting specimen concentration reflects recent vitamin intake. This test was developed and its performance characteristics determined by [facility]. It has not been cleared or approved by the [place] Food and Drug Administration. This test was performed in a CLIA certified laboratory and is intended for clinical purposes. Performed By: [facility] [address] [place] [address] Income Tax Expert: Sean Oconnell MD, PhD CLIA Number: [id number] Blood BLOOD SPECIMEN / Unknown Venipuncture / Unknown 07/17/2024 11:09 AM EDT 07/17/2024 11:09 AM EDT Alberto Hunt MD LABORATORY Final Result Performing Organization Address [facility] Co de Phone Number [facility] [address] [place] [address] * VITAMIN B12 (07/17/2024 11:09 AM EDT) Vitamin B12 661 232 - 1,245 pg/mL 07/17/2024 3:34 PM EDT [facility] Blood BLOOD SPECIMEN / Unknown Venipuncture / Unknown 07/17/2024 11:09 AM EDT 07/17/2024 11:09 AM EDT Alberto Hunt MD LABORATORY Final Result Performing Organization Address [facility] de Phone Number [facility] [address] [place], [place] [phone], [place] * SCLERODERMA IGG AB (07/17/2024 11:09 AM EDT) Scleroderma Ab Qual Negative Negative 07/18/2024 10:59 AM EDT [facility] Scleroderma Ab, IgG <0.2 <1.0 AI 07/18/2024 10:59 AM EDT [facility] Comment:Scl-70/Scleroderma a ntibody test is used as an aid in diagnosis of systemic sclerosis especially the diffuse cutaneous form. A negative result cannot rule out systemic sclerosis. The final interpretation should consider clinical picture and other test results such as anti-centromere antibody. Test Methodology: Multiplex flow immunoassay. Blood BLOOD SPECIMEN / Unknown Venipuncture / Unknown 07/17/2024 11:09 AM EDT 07/17/2024 11:09 AM EDT Alberto Hunt MD LABORATORY Final Result Performing Organization Address [facility] de Phone Number [facility] [address] [place], [place] [phone], [place] * METHYLMALONIC ACID (07/17/2024 11:09 AM EDT) Methylmalonic Acid 0.31 <=0.40 umol/L 07/18/2024 3:11 PM EDT [facility] Comment:This test was develo ped, and its performance characteristics determined by the [facility] Department of Pathology and Laboratory Medicine. It has not been cleared or approved by the FDA. The [facility] Department of Pathology and Laboratory Medicine is regulated under CLIA as qualified to perform high- complexity testing. This test is used for clinical purposes. It should not be regarded as investigational or for research. Blood BLOOD SPECIMEN / Unknown Venipuncture / Unknown 07/17/2024 11:09 AM EDT 07/17/2024 11:09 AM EDT Alberto Hunt MD LABORATORY Final Result Performing Organization Address [facility] Co de Phone Number [facility] [address] [address], [place] * SUNSHINE-1 AB (07/17/2024 11:09 AM EDT) SUNSHINE 1 ANTIBODY QUAL Negative Negative 2024 10:59 AM EDT [facility] Comment: Anti-SUNSHINE-1 antibody is used as an aid in diagnosis of polymyositis and dermatomyositis especially with pulmonary involvement. A negative result cannot rule out polymyositis or dermatomyositis. Clinical correlation is required. Test Methodology: Multiplex flow immunoassay. Sunshine 1 Antibody <0.2 <1.0 AI 07/18/2024 10:59 AM EDT [facility] Blood BLOOD SPECIMEN / Unknown Venipuncture / Unknown 07/17/2024 11:09 AM EDT 07/17/2024 11:09 AM EDT Alberto Hunt MD LABORATORY Final Result Performing Organization Address [facility] Co de Phone Number [facility] [address] [address], [place] * HEMOGLOBIN A1C (07/17/2024 11:09 AM EDT) Hemoglobin A1C 5.3 4.3 - 5.6 % 07/17/2024 4:55 PM EDT [facility] Comment:Citizen Of [place] Diabetes As sociation guidelines indicate that patients with HgbA1c in the range 5.7-6.4% are at increased risk for development of diabetes, and intervention by lifestyle modification may be beneficial. HgbA1c greater or equal to 6.5% is considered diagnostic of diabetes. Estimated Average Glucose 105 mg/dL 07/17/2024 4:55 PM EDT [facility] Comment:eAG: (Estimated aver age glucose) is a calculated value from HgbA1c and is senior outside sales representative of the average blood glucose level in the last 2-3 month period. Blood BLOOD SPECIMEN / Unknown Venipuncture / Unknown 07/17/2024 11:09 AM EDT 07/17/2024 11:09 AM EDT Alberto Hunt MD LABORATORY Final Result Performing Organization Address [facility] Co de Phone Number [facility] [address] [address], [place] * FOLATE, SERUM (07/17/2024 11:09 AM EDT) Folate >20.0 >4.7 ng/mL 07/17/2024 3:34 PM EDT [facility] Comment: A result of > 20 ng/mL is not necessarily indicative of a pathologic or treatable condition: it reflects a limitation of the test methodology. Assay reference range: 4.8 to 24.2 ng/mL. Suitable for detection of folate deficiency. Reference: Folate III (Folate III) [package insert V 1.0 Icelandic]. [employer], [place], [place]: December 2014. Blood BLOOD SPECIMEN / Unknown Venipuncture / Unknown 07/17/2024 11:09 AM EDT 07/17/2024 11:09 AM EDT Alberto Hunt MD LABORATORY Final Result Performing Organization Address City/[facility] Co de Phone Number [facility] [address] [place] [address], [place] * COPPER BLOOD (07/17/2024 11:09 AM EDT) Copper 98 80 - 155 ug/dL 07/18/2024 1:08 PM EDT [facility] Comment:This test was develo ped, and its performance characteristics determined by the [facility] Department of Pathology and Laboratory Medicine. It has not been cleared or approved by the FDA. The [facility] Department of Pathology and Laboratory Medicine is regulated under CLIA as qualified to perform high- complexity testing. This test is used for clinical purposes. It should not be regarded as investigational or for research. Blood BLOOD SPECIMEN / Unknown Venipuncture / Unknown 07/17/2024 11:09 AM EDT 07/17/2024 11:09 AM EDT Alberto Hunt MD LABORATORY Final Result Performing Organization Address City/[facility] Co de Phone Number [facility] [address] [place] [address], [place] * ANTI-CENTROMERE AB (07/17/2024 11:09 AM EDT) CENTROMERE AB QUAL Negative Negative 07/18/2024 10:59 AM EDT [facility] Centromere Ab <0.2 <1.0 AI 07/18/2024 10:59 AM EDT [facility] Comment: Anti-centromere antibody is used as in aid in diagnosis of systemic sclerosis. Clinical correlation is required. Test Methodology: Multiplex flow immunoassay. Blood BLOOD SPECIMEN / Unknown Venipuncture / Unknown 07/17/2024 11:09 AM EDT 07/17/2024 11:09 AM EDT Alberto Hunt MD LABORATORY Final Result Performing Organization Address [facility] Co de Phone Number [facility] [address] [place] [address], [place] * ANTI SSB BLD (07/17/2024 11:09 AM EDT) SSB Antibody <0.2 <1.0 AI 07/18/2024 10:59 AM EDT [facility] Comment: Anti-SSB (anti-La) antibody is used as an aid in diagnosis of a variety of systemic autoimmune diseases, especially for Sjogren's syndrome and systemic lupus erythematosus. Clinical correlation is required. Test Methodology: Multiplex flow immunoassay. SSB Antibody Qual Negative Negative 07/18/2024 10:59 AM EDT [facility] Blood BLOOD SPECIMEN / Unknown Venipuncture / Unknown 07/17/2024 11:09 AM EDT 07/17/2024 11:09 AM EDT us Alberto Hunt MD LABORATORY Final Result Performing Organization Address City/[facility]/ZIP Co de Phone Number [facility] [address] [facility] [address] [address], * ANTI SSA BLD (07/17/2024 11:09 AM EDT) SSA Antibody Qual Negative Negative 07/18/2024 10:59 AM EDT [facility] SSA Antibody IgG <0.2 <1.0 AI 07/18/2024 10:59 AM EDT [facility] Comment:Test Methodology: Mu ltiplex flow immunoassay. Blood BLOOD SPECIMEN / Unknown Venipuncture / Unknown 07/17/2024 11:09 AM EDT 07/17/2024 11:09 AM EDT Narrative [facility] - 07/18/2024 10:59 AM EDT Anti-SSA (anti-Ro) antibody is used as an aid in diagnosis of a variety of systemic autoimmune diseases, Sjogren's syndrome among others. Clinical correlation is required. Test Methodology: Multiplex flow immunoassay. Alberto Hunt MD LABORATORY Final Result [facility] [address] [address], from Last 3 Months Insurance [employer] Care Teams Orthopedic Specialist Relationship Specialty Start Date End Date Alberto Lugo [address] [place], [place] [id number] PCP - General 09/29/17
--- OUTSIDE RECORDS SUMMARY | 2024-10-15 11:28 | XMS_ITS | Encounter Summary ---
Author Organization [facility] Address [address] [place] [address] Care Team Providers Care Doctor Of Podiatric Medicine Name Role Phone Alberto Lugo Primary Care Provider [phone] Source Comments In the event this information is protected by the Federal Confidentiality of Alcohol and Drug AbusePatient Records regulations: The Federal rules restrict any use of the information to criminally investigate or prosecute any alcohol or drug abuse patient.[facility] Reason for Visit * Reason Comments Patient Question Encounter Details Date Type Department Care Team (Late st Contact Info) Description 09/10/2024 Telephone Neurology [address] [place] [address] [place]helle [place] [address] [place] [address] Patient Question Social History Tobacco Use Types Packs/Day Years [...] is lower risk 9 07/17/2024 Data from: https://www.neighborhoodatlas.medicine.[facility].edu/. Last address used for calculation [address] 07/17/2024 Comments Unknown Sex and Gender Information Value Date Recorded Sex Assigned at Not on file Legal Sex Female 2:46 PM EDT Gender Identity Not on file Sexual Orientation Not on file documented as of this encounter Miscellaneous Notes * Telephone Encounter - Tish Haider - 09/10/2024 10:25 AM EDT Patient called stating that she is having lots of headaches and they are becoming very painful. Shewanted to know if her appointment can be move sooner. documented in this encounter Plan of Treatment Not on file documented as of this encounter Visit Diagnoses Not on filedocumented in this encounter Care Teams Doctor Of Podiatric Medicine Relationship Specialty Start Date End Date Alberto Lugo [address] [place] [address] PCP - General 09/29/17 documented as of this encounter
--- OUTSIDE RECORDS SUMMARY | 2024-10-15 11:28 | XMS_ITS | Encounter Summary ---
Author Organization [facility] Address [address] [place] [address] Care Team Providers Care Yeast Distiller Name Role Phone Sandy Toribio Unavailable Alberto Leonardo MD Primary Care Provider [phone] Reason for Visit * Reason Onset Date Comments request refill 10/08/2024 Encounter Details Date Type Department Care Team (Late st Contact Info) Description 10/08/2024 Telephone [facility] 112 [facility] [address] [place] [address] Jannette Arciniega MD 112 [facility] [address] [place] [address] request refill Social History Tobacco Use Types Packs/Day Years [...] encounter Miscellaneous Notes * Telephone Encounter - Vannessa Arciniega - 10/08/2024 4:02 PM EDT Pt is scheduled for follow up 10/15/24. * Telephone Encounter - Jannette Arciniega MD - 10/08/2024 3:58 PM EDT Pt should F/U to have a culture of her nose done if she is still having symptoms * Telephone Encounter - Vannessa Demian - 10/08/2024 3:47 PM EDT Pt would like to know if she can have the rx refilled doxy 100 mg, her pharmacy is [facility] in [place]. documented in this encounter Plan of Treatment Upcoming Encounters Date Type Department Care Team (Late st Contact Info) Description 11/12/2024 1:00 PM EDT Office Visit [facility] [place] [facility] [address] [place] [address] Jannette Arciniega MD [address] [place] [address] documented as of this encounter Visit Diagnoses Not on filedocumented in this encounter Care Teams Yeast Distiller Relationship Specialty Start Date End Date Alberto Leonardo MD [address] [place] [address], [address] [place], [place] [phone] PCP - General Family Medicine 04/19/24 Sandy Toribio PA Physician Camera Technician Neurology 03/05/24 documented as of this encounter
--- OUTSIDE RECORDS SUMMARY | 2024-10-15 11:28 | XMS_ITS | Clinical Summary ---
Author Organization [facility] Address [address] [place] [address] Care Team Providers Care Focuser Name Role Phone Sandy Toribio Unavailable Alberto Leonardo MD Primary Care Provider [phone] Allergies Active Allergy Reactions Criticality Noted Date Comments Cefdinir Nausea Only 11/17/2020 Gabapentin Nausea Only Low 12/22/2021 Other Reaction(s): GI Disturbance, Other, Vomiting vomitting Iodine 11/09/2022 Other Headache,Hives Low 09/29/2022 Other Reaction(s): Other Statins: confusion, visual disturbance, facial drouping Sulfa Antibiotics Hives High 07/24/2019 Other Reaction(s): Hives, Other (See Comments) Medications apixaban (Eliquis) 5 MG tablet Take 5 mg by mouth in the morning and 5 mg in the evening. Active carvedilol (Coreg) 12.5 MG tablet Take 12.5 mg by mouth every 12 (twelve) hours Active citalopram (CeleXA) 10 MG tablet Take 10 mg by mouth 1 (one) time each day at the same time Active cyclobenzaprin e (Flexeril) 5 MG tablet Take 5 mg by mouth as needed in the morning and 5 mg as needed in the evening. 05/03/19 23 Active esomeprazole (NexIUM) [address] capsule Take 40 mg by mouth in the morning. Take before meals. 09/26/19 23 Active famotidine (Pepcid) 20 MG tablet Take 20 mg by mouth at bedtime Active lisinopril 5 MG tablet Take 5 mg by mouth in the morning. Active pantoprazole (ProtoNix) 40 MG EC tablet Take 40 mg by mouth in the morning. 12/21/19 22 Active pravastatin (Pravachol) 20 MG tablet Take 20 mg by mouth at bedtime Active pregabalin (Lyrica) 50 MG capsule Take 50 mg by mouth at bedtime 08/02/19 23 Active albuterol HFA 90 mcg/act inhaler Inhale 2 puffs every 4 (four) hours if needed for wheezing Active sucralfate (Carafate) 1 g tablet Take by mouth in the morning and at noon and in the evening and before bedtime. Take before meals. Active amiodarone (Pacerone) 200 MG tablet 08/19/19 25 Active fluticasone (Flonase) 50 MCG/ACT nasal sprayIndicatio ns:Chronic maxillary sinusitis Administer 2 sprays into each nostril Daily Shake gently. Before first use, prime pump. After use, clean tip and replace cap. 48 g 3 09/18/19 25 026 Active baclofen (Lioresal) 5 MG tablet TAKE 1/2 TO 1 (ONE-HALF TO ONE) TABLET BY MOUTH TWICE DAILY NEEDED (TENSION/TIGH TNESS) 10/11/19 25 Active DULoxetine (Cymbalta) [address] capsule Take 20 mg by mouth Daily 09/26/19 25 Active flecainide (Tambocor) 100 MG tablet Take 100 mg by mouth every 12 (twelve) hours 025 Discontinued(Th erapy completed) fluticasone (Flonase) 50 MCG/ACT nasal spray Administer 1 spray into each nostril Daily 06/15/19 23 025 Discontinued guaiFENesin-co deine (Robitussin-AC ) 100-10 MG/5ML syrup Take by mouth 025 Discontinued(Th erapy completed) predniSONE (Deltasone) 10 MG tabletIndicati ons:Occipital neuralgia of right side 3 tabs PO daily for 3 days, then 2 tabs PO daily for 3 days, then 1 tab PO daily for 3 days, then stop 18 tablet 04/24/19 25 025 Discontinued(Th erapy completed) OXcarbazepine (Trileptal) 300 MG tabletIndicati ons:Occipital neuralgia of right side Take 1.5 tablets (450 mg) by mouth in the morning and 1.5 tablets (450 mg) before bedtime. 90 tablet 2 05/24/19 25 025 Discontinued( erapy completed) levoFLOXacin (Levaquin) 500 MG tabletIndicati ons:Chronic maxillary sinusitis Take 1 tablet (500 mg) by mouth Daily for 10 days 10 tablet 09/05/19 25 025 Discontinued( erapy completed) doxycycline (Monodox) 100 MG capsuleIndicat ions:Chronic maxillary sinusitis Take 1 capsule (100 mg) by mouth in the morning and 1 capsule (100 mg) before bedtime. Do all this for 14 days. Take with at least 8 ounces (large glass) of water, do not lie down for 30 minutes after. 28 capsule 09/05/19 25 025 Discontinued( erapy completed) doxycycline (Monodox) 100 MG capsuleIndicat ions:Chronic maxillary sinusitis Take 1 capsule (100 mg) by mouth in the morning and 1 capsule (100 mg) before bedtime. Do all this for 7 days. Take with at least 8 ounces (large glass) of water, do not lie down for 30 minutes after. 14 capsule 09/18/19 25 025 Active Problems Problem Noted Date Diagnosed Date Abnormality of gait 07/17/2024 Chronic bilateral low back pain with left-sided sciatica 07/17/2024 Encounter for screening for metabolic disorder 0 07/17/2024 Neuropathic pain 07/17/2024 Paroxysmal atrial fibrillation 07/17/2024 Obstructive sleep apnea syndrome 05/16/2024 Memory impairment 05/14/2023 Mild cognitive impairment 05/14/2023 Peripheral polyneuropathy 05/14/2023 Disturbance of skin sensation 05/14/2023 Cervicalgia 12/02/2022 Balance disorder 11/16/2022 Dizziness and giddiness 11/09/2022 Allergic rhinitis 09/03/2009 Asthma without status asthmaticus 09/03/2009 Encounters Date Type Department Care Team Description 10/15/2024 10:30 AM EDT Office Visit [facility] [place] [facility] [address] [facility] [address] [place] [phone] Jannette Arciniega MD Chronic maxillary sinusitis; Acute sinusitis, recurrence not specified, unspecified location 10/15/2024 Bamboo flowsheet [facility] [place] [facility] [address] [place] [address] Jannette Arciniega MD 10/15/2024 Travel 10/08/2024 Telephone [facility] [place] [facility] [address] [place] [address] Jannette Arciniega MD request refill 09/17/2024 11:20 AM EDT Office Visit [facility] [place] [facility] [address] [place] [address] Jannette Arciniega MD Chronic maxillary sinusitis (Primary Dx) 09/17/2024 MainOneo flowsheet [facility] [place] [facility] [address] [place] [address] Jannette Arciniega MD 09/17/2024 Travel 09/04/2024 Telephone [facility] [place] [facility] [address] [place] [address] Jannette Arciniega MD 09/04/2024 Telephone [facility] [place] [facility] [address] [place] [address] Jannette Arciniega MD Med Refill; request for rx from Last 3 Months Immunizations Immunization Administration Dates Next Due Influenza, High-dose Seasona l, Quadrivalent, Preservative Free 11/02/2022,11/25/2021,11/12/2020 Influenza, Seasonal, Quadriv alent, Adjuvanted 11/21/2019 Influenza, Unspecified 11/25/2021,2018,11/01/2018,11/06,11/06/2008 Influenza, injectable, quadr ivalent, preservative free 11/21/2019,11/20/2017,11/18/2014 Influenza, seasonal, injectable 11/12/2014 Influenza, seasonal, intrade rmal, preservative free 11/17/2011 Pneumococcal Conjugate PCV 13 11/25/2021, 020,11/18/2014 Pneumococcal Conjugate PCV 20 11/25/2021 Pneumococcal Polysaccharide PPSV23 11/06,02/06/2013,02/06/2009,11/06 RSV, recombinant, protein bull bunit RSVpreF, adjuvant reconstitu, 120mcg/0.5mL, PF (Arexvy) 11/25/2022 Zoster, Recombinant 11/12/2019 Zoster, live 02/06/2013 Family History Medical History Relation Name Comments Coronary artery disease Father Heart attack Father Pulmonary embolism Father Hypertension Mother Relation Name Status Comments Father Mother [...] EDT Temperature - - Respiratory Rate 16 03/05/2024 11:18 AM EST Oxygen Saturation 91% 03/05/2024 11:18 AM EST Inhaled Oxygen Concentration - - Weight 95.3 kg (210 lb) 10/15/2024 10:30 AM EDT Height 167.6 cm (5' 6 ) 10/15/2024 10:30 AM EDT Body Mass Index 33.89 10/15/2024 10:30 AM EDT Plan of Treatment Upcoming Encounters Date Type Department Care Team (Late st Contact Info) Description 11/12/2024 1:00 PM EDT Office Visit [facility] [place] [facility] [address] [facility] [address] [place] [address] Jannette Arciniega MD 112 [facility] [address] [place] [address] Health Maintenance Due Date Last Done Comments Influenza Vaccine (#1) 2024 , 11/02/2022, 11/25/2021, Additional history exists Pneumococcal Vaccine: 65+ Years Completed 12/13/2023, 11/25/2021, 11/25/2021, Additional history exists Insurance [employer] Care Teams Focuser Relationship Specialty Start Date End Date Alberto Leonardo MD [address] [place] [address], [address] [place] [address] PCP - General Family Medicine 04/19/24 Sandy Toribio PA Physician Revising Clerk Neurology 03/05/24
--- OUTSIDE RECORDS SUMMARY | 2024-10-15 11:28 | XMS_ITS | Encounter Summary ---
Author Organization [facility] Address [address] [place] [address] Care Team Providers Care Inside Technical Sales Representative Name Role Phone Sandy Toribio Unavailable Alberto Leonardo MD Primary Care Provider [phone] Encounter Details Date Type Department Care Team (Latest Contact Info) Description 10/15/2024 Travel Social History Tobacco Use Types Packs/Day [...] 11/12/2024 1:00 PM EDT Office Visit [facility] [address] [facility] [address] [place] [address] Jannette Arciniega MD 112 [facility] 130 [place] [address] documented as of this encounter Visit Diagnoses Not on filedocumented in this encounter Care Teams Inside Technical Sales Representative Relationship Specialty Start Date End Date Alberto Leonardo MD [address] [place] [address], [address] [place], [place] [phone] PCP - General Family Medicine 04/19/24 Sandy Toribio PA Physician Flasher Adjuster Neurology 03/05/24 documented as of this encounter
--- OUTSIDE RECORDS SUMMARY | 2024-10-15 11:28 | XMS_ITS | Encounter Summary ---
Author Organization [facility] Address [id number] [address] [place] [address] Care Team Providers Care Wedger Name Role Phone Alberto Leonardo MD Primary Care Provider [phone] Encounter Details Date Type Department Care Team (Late st Contact Info) Description 07/26/2022 Orders Only [facility]/Pediatrics [address] [place] [address] External, Scanning Provider Social History Tobacco Use [...] any clubs o r organizations such as sabianist groups, unions, fraternal or athletic groups, or [...] Total Score 1 12/14/2021 [facility] [place] of Occupat ional Health - Occupational Stress [...] Recorded Do you need help finding a [facility] career center and/or a training program? [...] Cardiology [address] [place] [address] Rose Marie Goode MD [address] [place] [address] documented as of this encounter Goals Goal Patient Goal Type Associated Problems Recent Progress Patient-Stated? Author SNF General Yes Flora Ornelas LSW Note: Evaluation of progress towards goal: DC to SNF or home with HHC (pending clinical course). Pt symptoms improved, goal is home; declining HHC. documented as of this encounter Procedures Procedure Name Priority Date/Time Associated Diagnosis Comments MR BRAIN WO CONT Routine 07/25/2022 MULTIPLE RADS Routine 07/22/2022 documented in this encounter Results * MR brain without contrast (07/25/2022) Anatomical Region Laterality Modality Neuro, Head, Head and Neck, Neuro Covera N/A Magnetic Resonance 07/25/2022 us Scanning Provider External IMG MRI ORDERABLES Fi nal Result * Multiple rads (07/22/2022) Anatomical Region Laterality Modality Other 07/22/2022 us Scanning Provider External SD IMAGING Final Result documented in this encounter Visit Diagnoses Not on filedocumented in this encounter Additional Health Concerns Infection Onset Date Last Indicated Resolved Time COVID-19 Rule-Out 03/11/2023 03/11/2023 03/11/2023 3:46 PM EST COVID-19 Rule-Out 03/11/2023 03/11/2023 03/11/2023 5:20 PM EST Assessment Noted Time PHQ-9 Depression Total Score: 1 12/15/19 22 1:00 PM EST documented as of this encounter Care Teams Wedger Relationship Specialty Start Date End Date Alberto Leonardo MD [address] [place] [address], [address] [place] [address] PCP - General Pediatrics 04/13/23 documented as of this encounter
--- OUTSIDE RECORDS SUMMARY | 2024-10-15 11:28 | XMS_ITS | Encounter Summary ---
[facility] Address [id number] [address] [place] [address] Care Team Providers Care Chief Controller Name Role Phone Alberto Leonardo MD Primary Care Provider [phone] Encounter Details Date Type Department Care Team (Late st Contact Info) Description 07/15/2022 Orders Only [facility]/Pediatrics [address] [place] [address] Tia Ryan RMA Cognitive decline Social History Tobacco Use Types Packs/Day Years [...] often do you attend chur ch or yazidi services? More than 4 times per year 09/04/2021 Do you belong to any clubs o r organizations such as anglican groups, unions, fraternal or athletic groups, or [...] Answer Date Recorded Total Score 1 12/14/2021 [facility] [place] of Occupat ional Health - Occupational Stress [...] Recorded Do you need help finding a [facility] and/or a training [...] Cardiology [address] [place] [address] Rose Marie Goode MD [address] [place] [address] documented as of this encounter Goals Goal Patient Goal Type Associated Problems Recent Progress Patient-Stated? Author SNF General Yes Flora Ornelas LSW Note: Evaluation of progress towards goal: DC to SNF or home with HHC (pending clinical course). Pt symptoms improved, goal is home; declining HHC. documented as of this encounter Procedures Procedure Name Priority Date/Time Associated Diagnosis Comments AMB REFERRAL TO NEUROLOGY Routine 07/13/2022 Cognitive decline documented in this encounter Results * Ambulatory referral to Neurology (07/13/2022) 07/13/2022 us Alberto Leonardo MD OUTPATIENT REFERRAL ORDERABLE S Final Result MANUALLY TRANSCRIBED RESULTS documented in this encounter Visit Diagnoses Diagnosis Cognitive decline documented in this encounter Additional Health Concerns Infection Onset Date Last Indicated Resolved Time COVID-19 Rule-Out 03/11/2023 03/11/2023 03/11/2023 3:46 PM EST COVID-19 Rule-Out 03/11/2023 03/11/2023 03/11/2023 5:20 PM EST Assessment Noted Time PHQ-9 Depression Total Score: 1 12/15/19 22 1:00 PM EST documented as of this encounter Care Teams Chief Controller Relationship Specialty Start Date End Date Alberto Leonardo MD [address] [place] [address], [address] [place] [address] PCP - General Pediatrics 04/13/23 documented as of this encounter
== END 2024-10-15 11:25 | disposition home or self-care (01) ==
LOC: LAB 11:24
PROVIDERS: PCP Internal Medicine; Visit Provider Otolaryngology
DX: J32.0 Chronic maxillary sinusitis (principal); J01.90 Acute sinusitis, unspecified
CPT/HCPCS: 87070; 87077; 87186